=== PATIENT | female | born 1980 | race Caucasian/White ===

== ENCOUNTER 2025-04-16 18:05 | Emergency (ER) | payer BC, SELFPAY ==
--- OUTSIDE RECORDS SUMMARY | 2025-04-16 18:13 | XMS_ITS ---
Care Plan - [facility] Created on: April 16, 2025 JOSSELYN ADRIAN : 1980 Sex: Female Author Organization [facility] Address [address] [place] [address] Phone Care Team Providers Care Mixologist Name Role Phone KALLI ASHTON, ZAIDA Palacios Primary Care Provider [phone] PAYAM ASHTON, ANDREW C Unavailable [phone]
--- OUTSIDE RECORDS SUMMARY | 2025-04-16 18:14 | XMS_ITS | Clinical Summary ---
Author Organization [facility] Address [address] [place] [address] Phone Care Team Providers Care Town Planner Name Role Phone KALLI ASHTON, ZAIDA Palacios Primary Care Provider [phone] ANDREW HARE MD Unavailable [phone] Reason for Visit and Chief Complaint NEW OB EXAM Plan of Treatment No Plan of Treatment Recorded Assessments Includes: Assessments from this encounter No Assessments Recorded Medical Equipment - Implanted Devices Includes: Current Devices No Medical Equipment Recorded Medications Administered Includes: Administered Medications from this encounter No Administered Medications Recorded Results Includes: Results discussed during this encounter No Results Recorded For Specified Dates History of Present Illness Includes: History of Present Illness from this encounter No History of Present Illness Recorded Social History No Social History Recorded - Smoking Status Unknown Medical History Includes: Medical History addressed during this encounter No Medical History Recorded Family History Includes: Family History addressed during this encounter No Family History Recorded Review of Systems Includes: Review of Systems from this encounter No Review of Systems Recorded Mental Status Includes: Mental Status from this encounter No Mental Status Recorded Functional Status Includes: Functional Status from this encounter No Functional Status Recorded Physical Exam Includes: Physical Exam from this encounter No Physical Exam Recorded Insurance Includes: Active Insurance Policies No Insurance Coverage Recorded Guarantor Relationship Effective Dates Guarantor Ph one JOSSELYN ADRIAN Self Clinical Notes Includes: Clinical Notes from this encounter No Clinical Notes Recorded
--- OUTSIDE RECORDS SUMMARY | 2025-04-16 18:14 | XMS_ITS | Clinical Summary ---
Author Organization [facility] Address [address] [place] [address] Care Team Providers Care Coal Trimmer Name Role Phone Natalia Ho Primary Care Provider [phone] Source Comments [facility],non-owned Affiliates and Associated Physician Practices is amultiple site organization consisting of ambulatory clinics and hospital sitesin [place], [place], [place] and [place]. This disclosure is being madepursuant to the Care Everywhere program and may not contain all information available regarding this patient. Last updated 18.[facility] Family History Medical History Relation Name Comments Hypertension Mother Relation Name Status Comments Mother Social History Tobacco Use Types Packs/Day Years Used Date Smoking Tobacco: Never Smokeless Tobacco: Never Tobacco Cessation:Counseling Given: Not Answered Alcohol Use Standard Drinks/Week Comments Not Currently 0 (1 standard drink = 0.6 oz pur e alcohol) Comments Unknown Sex and Gender Information Value Date Recorded Sex Assigned at Not on file Legal Sex Female 9:33 AM CDT Gender Identity Not on file Sexual Orientation Not on file Last Filed Vital Signs Vital Sign Reading Time Taken Comments Blood Pressure 120/83 11/23/2022 2:04 PM CDT Pulse 103 11/23/2022 2:04 PM CDT Temperature - - Respiratory Rate 20 11/23/2022 2:04 PM CDT Oxygen Saturation - - Inhaled Oxygen Concentration - - Weight 59 kg (130 lb) 11/23/2022 2:04 PM CDT Height 157.5 cm (5' 2) 11/23/2022 2:04 PM CDT Body Mass Index 23.78 11/23/2022 2:04 PM CDT Plan of Treatment Health Maintenance Due Date Last Done Comments LIPID TESTING 1980 HIV SCREENING 1997 HEPATITIS C SCREENING 05/22/2000 DTAP/TDAP/TD VACCINES (1 - Tdap) 2001 HEPATITIS B VACCINE (1 of 3 - 19+ 3-dose series) 2001 PAP SMEAR 2003 HPV VACCINE (1 - 3-dose SCDM series) 2009 DEPRESSION SCREENING 04/25/2024 MAMMOGRAM 12/15/2024 12/15/2022, 11/09/2022, 11/09/2022 COVID-19 VACCINE (2 - 2024-2 6 season) 2024 01/28/2021 INFLUENZA VACCINE (#1) 2024 9, 03/18/2018, 01/12/2017 ZOSTER VACCINE (1 of 2) 2032 HIB VACCINE Aged Out No longer eligi ble based on patient's age to complete this topic MENINGOCOCCAL (Group B) VACCINE SHARED DECISION-MAKING Aged Out No longer eligible based on patient's age to complete this topic MENINGOCOCCAL GROUPS A/C/Y/W VACCINE Aged Out No longer eligible b ased on patient's age to complete this topic PNEUMOCOCCAL VACCINE Aged Out No long er eligible based on patient's age to complete this topic Care Teams Coal Trimmer Relationship Specialty Start Date [place] [address] PCP - General 11/23/22
--- OUTSIDE RECORDS SUMMARY | 2025-04-16 18:14 | XMS_ITS | Clinical Summary ---
Author Organization [facility] Address [address] [place] [address] Phone Care Team Providers Care Detective And Intelligence Analyst Name Role Phone KALLI ASHTON, ZAIDA Palacios Primary Care Provider [phone] ANDREW HARE MD Unavailable [phone] Reason for Visit and Chief Complaint MISSED MENSES Plan of Treatment No Plan of Treatment [...]
--- OUTSIDE RECORDS SUMMARY | 2025-04-16 18:14 | XMS_ITS | Data Portability ---
Author Organization DEVON Alma LATHAM Address [address] [place] [address] Care Team Providers Care Assistant Family Teacher Name Role Phone NKECHI FERNANDO Director Of Materials Assessment Encounter Date Assessment Date Assessment LastModified by Organization Details LastModified Time 10/08/2022 10/08/2022 bladder mass seen on US ( had been seen before) will get CT as rerquested by radiology lengthy talk about her 18 week loss today dealt with counselling choices, HROB apt for future if she wants, etc Not available 10/08/2022 15:50:16 11/09/2022 11/09/2022 follow up visit for bladder mass and recent 17 week demise referrals placed, she will keep us posted Not available 11/09/2022 15:15:25 05/17/2023 05/17/2023 tabulating machine mechanic exam benign will watch vaginal bumps and keep us posted if enlarge f/u with urology has been (-) so far for bladder mass seen on OB USs Not available 05/17/2023 16:01:07 09/08/2023 09/08/2023 Discussed risks of subsequent SAB as likely approaching 50%, but the risk of an 18 week loss would be very small Not available 09/08/2023 17:23:31 05/22/2024 05/22/2024 tabulating machine mechanic exam normal discussed irregluar period causes and fixes Not available 05/22/2024 16:01:19 Plan of Treatment Reminders Order Date Submit Date Provider Last Modified By Organization Details Last Modified Time Details Appointments ANNUAL 2025 10:00A M Nkechi Fernando MD Not available Not available Not available Lab cytology report, thin prep, smear or scraping, cervical or vaginal 2024 025 [facility], [address], [address], [place], [address], 05/30/2024 07:32:07 test, urine 2023 024 In-Office Order, Internal Use Only DO Not Attach Compendium DO Not Attach Compendium, Do Not Delete/merge, [id number] 09/08/2023 17:23:33 cytology report, thin prep, smear or scraping, cervical or vaginal 2023 024 [facility], [address], [address], [place], [address], 05/23/2023 16:12:59 Referral None recorded. Procedures None recorded. Surgeries None recorded. Imaging MAMMO, screening , digital, bilateral 2024 025 [facility] (Radiology), [address] [place], [address], 01/22/2025 12:00:32 MAMMO, screening , digital, bilateral 2023 024 [facility] (Radiology), [address] [place], [address], 01/20/2024 12:11:43 Medication Orders None recorded. Patient TargetsNo targets recorded. Patient Instructions Encounter Date Encounter Id Patient Instructions Last Modified By Organization Details Last Modified Time 10/08/2022 [id number] edinburgh depression scale* Not available 10/08/2022 15:36:04 miscarriage: car e instructions Not available 10/08/2022 15:36:04 05/17/2023 [id number] learning about breast cancer screening Not available 05/17/2023 15:50:43 09/08/2023 [id number] miscarriage: car e instructions Not available 09/08/2023 17:23:32 05/22/2024 [id number] learning about breast cancer screening Not available 05/22/2024 15:45:53 Reason for Referral None Reported. Results Created Date Observation Date Name Description Value Unit Range Abnormal Flag Note LastModifiedBy Organization Detail LastModifiedTime 10/09/1910/08/2022 edinb urgh postn atal depre ssion scale * Score 14 Not Available In-Office Order Internal Use Only DO Not Attach Compendium DO Not Attach Compendium, Do Not Delete/merge, [id number] 10/08/2022 15:05:15 05/17/19 24 05/23/2023 IGP, RFX APTIM A HPV ASCU diagnosis: Brinda becker NEGAT FREDI FOR INTRA EPITH ELIAL LESIO N OR KATIE HATCH . REACT FREDI CELLU LAR HERNANDEZ ES AND/O R REPAI R ARE PRESE NT. Not Available [facility] ([facility]) [address], [place], [address], 05/23/2023 16:12:59 05/17/19 24 05/23/2023 IGP, RFX APTIM A HPV ASCU specimen adequacy: Brinda becker Satis facto ry for evalu ation . Endoc ervic al and/o r squam ous metap lasti c cells (endo cervi jalyn compo nent) are prese nt. Not Available [facility] ([facility]) [address], [place], [address], 05/23/2023 16:12:59 05/17/19 24 05/23/2023 IGP, RFX APTIM A HPV ASCU clinician provided ICD10: Brinda becker Z01.4 19 Not Available [facility] ([facility]) [address], [place], [address], 05/23/2023 16:12:59 05/17/19 24 05/23/2023 IGP, RFX APTIM A HPV ASCU performed by: Brinda Penn ws, Cytot echno logis t (ASCP ) Not Available [facility] ([facility]) [address] [place], [address], 05/23/2023 16:12:59 05/17/19 24 05/23/2023 IGP, RFX APTIM A HPV ASCU electronical ly signed by: Brinda salvador MD, Patho logis t Not Available [facility] ([facility]) [address] [place], [address], 05/23/2023 16:12:59 05/17/19 24 05/23/2023 IGP, RFX APTIM A HPV ASCU . . Not Available [facility] ([facility]) [address], [place], [address], 05/23/2023 16:12:59 05/17/19 24 05/23/2023 IGP, RFX APTIM A HPV ASCU note: Brinda t The Pap smear is a scree violetta test desig alexandr to aid in the detec tion of justa ligna nt and malig nant condi tions of the uteri ne cervi x. It is not a diagn ostic proce dure and shoul d not be used as the sole means of detec ting cervi jalyn cance r. Both false -posi tive and false -nega tive repor ts do occur . Not Available [facility] ([facility]) [address], [place], [address], 05/23/2023 16:12:59 05/17/19 24 05/23/2023 IGP, RFX APTIM A HPV ASCU test methodology: Brinda becker This liqui d based ThinP rep(R ) pap test was scree alexandr with the use of an image guide girma whiteside. Not Available [facility] ([facility]) [address] [place], [address], 05/23/2023 16:12:59 05/17/19 24 05/23/2023 IGP, RFX APTIM A HPV ASCU . Commen t The HPV DNA refle x crite zulma were not met with this speci men resul t there fore, no HPV testi ng was perfo rmed. Not Available [facility] ([facility]) [address], [place], [address], 05/23/2023 16:12:59 09/02/19 24 09/03/2023 HCG,B ETA SUBUN IT, QNT HCG,beta subunit,qnt, serum 3 mIU/m L Femal e (Non- pregn ant) 0 - 5 (Post menop ausal ) 0 - 8 Femal e (Preg nant) Weeks of Gesta tion 3 6 - 71 4 10 - 750 5 097 - 1738 6 158 - 24784 7 0038 -9395 63 8 16617 -5868 71 9 39281 -4913 10 10 05809 -4212 77 12 13522 -4105 12 14 00302 - 05501 15 58014 - 88038 16 1034 - 60323 17 1458 - 78472 18 7873 - 69639 Sheri ECLIA metho dolog y Not Available [facility] ([facility]) [address] [facility], [place], [address], 09/03/2023 11:11:59 09/08/19 24 09/08/2023 pregn giulia test, urine HCG negati ve Not Available In-Office Order Internal Use Only DO Not Attach Compendium DO Not Attach Compendium, Do Not Delete/merge, [id number] 09/08/2023 16:55:30 05/22/1905/28/2024 IGP, RFX APTIM A HPV ASCU diagnosis: COMMEN T abnormal EPITH ELIAL CELL ABNOR MALIT Y. ATYPI JALYN SQUAM OUS CELLS OF UNDET ERMIN ED SIGNI FICAN CE (ASC- US). Not Available [facility] ([facility]) [address] [facility], [place], [address], 05/30/2024 07:32:07 05/22/19 25 05/28/2024 IGP, RFX APTIM A HPV ASCU recommendati on: BRINDA Becker abnormal Sugge st follo w up as clini jaret appro priat e. Not Available [facility] ([facility]) [address] [place], [address], 05/30/2024 07:32:07 05/22/19 25 05/28/2024 IGP, RFX APTIM A HPV ASCU specimen adequacy: BRINDA Becker Satis facto ry for evalu ation . Endoc ervic al and/o r squam ous metap lasti c cells (endo cervi jalyn compo nent) are prese nt. Not Available [facility] ([facility]) [address] [place], [address], 05/30/2024 07:32:07 05/22/19 25 05/28/2024 IGP, RFX APTIM A HPV ASCU clinician provided ICD10: BRINDA Becker Z01.4 19 Not Available [facility] ([facility]) [address] [place], [address], 05/30/2024 07:32:07 05/22/19 25 05/28/2024 IGP, RFX APTIM A HPV ASCU performed by: BRINDA Padgett er, Cytot echno logis t (ASCP ) Not Available [facility] ([facility]) [address] [place], [address], 05/30/2024 07:32:07 05/22/19 25 05/28/2024 IGP, RFX APTIM A HPV ASCU electronical ly signed by: BRINDA salvador MD, Patho logis t Not Available [facility] ([facility]) [address] [place], [address], 05/30/2024 07:32:07 05/22/19 25 05/28/2024 IGP, RFX APTIM A HPV ASCU . . Not Available [facility] ([facility]) [address] [place], [address], 05/30/2024 07:32:07 05/22/19 25 05/28/2024 IGP, RFX APTIM A HPV ASCU pathologist provided ICD10: BRINDA Becker R87.6 10 Not Available [facility] ([facility]) [address] [facility], [place], [address], 05/30/2024 07:32:07 05/22/19 25 05/28/2024 IGP, RFX APTIM A HPV ASCU note: COMMEN T The Pap smear is a scree violetta test desig alexandr to aid in the detec tion of justa ligna nt and malig nant condi tions of the uteri ne cervi x. It is not a diagn ostic proce dure and shoul d not be used as the sole means of detec ting cervi jalyn cance r. Both false -posi tive and false -nega tive repor ts do occur . Not Available [facility] ([facility]) [address] [facility] [address], [place], [address], 05/30/2024 07:32:07 05/22/19 25 05/28/2024 IGP, RFX APTIM A HPV ASCU test methodology: BRINDA T This liqui d based ThinP rep(R ) pap test was scree alexandr with the use of an image guide girma systvioletta m. Not Available [facility] ([facility]) [address] [place], [address], 05/30/2024 07:32:07 05/22/19 25 05/28/2024 IGP, RFX APTIM A HPV ASCU . COMMEN T See below for HPV testi ng resul ts. Not Available [facility] ([facility]) [address] [place], [address], 05/30/2024 07:32:07 05/22/19 25 05/29/2024 HPV APTIM A HPV aptima Negati ve negati ve This nucle ic acid ampli ficat ion test detec ts fourt een high- risk HPV types (16,1 8,31, 33,35 ,39,4 5,51, 52,56 ,58,5 9,66, 68) witho ut diffe renti ation . Not Available [facility] ([facility]) [address], [place], [address], 05/30/2024 07:32:08 09/14/19 23 09/13/2022 US, obste tric, mater nal evalu ation + anato my No observ ation record ed. [email or web address] (Radiology) [address] [place] [address] [place], [address], 09/14/2022 10:16:16 09/15/19 23 09/13/2022 US, obste tric, mater nal evalu ation + anato my No observ ation record ed. [email or web address] [place] [facility] (Radiology) [address] [place] [address] [place], [address], 09/15/2022 11:52:27 11/03/19 23 11/01/2022 CT, abdom en + pelvi s, w/ contr ast No observ ation record ed. [address] [place], [address], 11/03/2022 12:22:05 11/10/19 23 11/09/2022 MAMMO , scree violetta, digit al, bilat eral No observ ation record ed. [facility] [address] [place] [address] [place], [address], 11/10/2022 10:20:09 12/16/19 23 12/15/2022 MAMMO , diagn ostic , digit al, bilat eral No observ ation record ed. [email or web address] [place], [address], 12/15/2022 11:42:25 01/20/20 24 01/19/2024 MAMMO , scree violetta, digit al, bilat eral No observ ation record ed. [facility] (Radiology) [address] [place] [address] [place], [address], 01/20/2024 12:12:46 01/20/20 24 01/19/2024 MAMMO , scree violetta, digit al, bilat eral No observ ation record ed. [facility] (Radiology) [address] [place] [address] [place], [address], 01/23/2024 09:14:15 01/22/2001/21/2025 MAMMO , scree violetta, digit al, bilat eral No observ ation record ed. [address] [place], [address], 01/22/2025 12:03:44 Result Notes None recorded. Problems Name Problem SNOMED Code Status Onset Date Resolution Date Notes Provider Name and Address Organization Details Recorded Time Gestation period, 40 weeks 17979027 Active Thelma Ennis RMA [place], [place] [facility] 3 13:44:46 Vaginal delivery 826125476 Active Thelma En[place] [facility] 3 13:44:46 Abnormal cervical Papanicola ou smear 016870731 Active Yen Soriano [place] [facility] 6 10:36:21 Dysplasia of cervix 85240352 Active Thelma Ennis R[place] [facility] 3 13:44:46 Cervical intraepith elial neoplasia grade 2 004527929 Active Thelma En[place] R[place] [facility] 3 13:44:46 Cervical intraepith elial neoplasia grade 1 000923689 Active Thelma En[place] R[place] [facility] 3 13:44:46 95989254 Completed 201603/08/2017 Regina Henriquez RN [place] [facility] 3 17:55:38 63791145 Completed 201709/06/2018 Regina Henri[place] [facility] 3 17:55:38 Abnormal vaginal Papanicola ou smear 045765864 Active 2017 CAILIN Lyon [place] [facility] 1 11:01:02 ultrasound scan abnormal 809464089 Active 2017 CAILIN [place] [facility] 1 11:01:02 High risk 03527939 Active 2017 CAILIN [place] [facility] 1 11:01:02 13568094 Completed 202004/20/2021 Regina Henri[place] [facility] 3 17:55:38 [id number] Completed 202209/13/2022 Regina Henri[place] [facility] 3 17:55:38 Problem Notes None recorded. Procedures Surgical History Date Name Laterality Status Provider Name and Address Organization Details Recorded Time 01/22/20 25 Most Recent Mammogram completed Regina Henriquez RN [place] - [facility] 01/22/2025 12:03:53 05/22/19 25 Date of Last Pap Smear completed CAILIN Lyon [place] - [facility] 05/30/2024 09:00:11 08/19/19 16 Colposcopy completed Kathy Herndon ID - [facility] 08/19/2015 17:08:49 01/09/20 15 Colposcopy completed Kathy Herndon ID - [facility] 01/08/2015 17:32:15 Appendectomy completed Arleth Salas [place] - [facility] 19:54:20 Tonsillectomy completed Yen Soriano MA ID - [facility] 09/15/2015 10:42:33 LEEP completed Kaylin Stokes [place] - [facility] 05/19/2016 15:11:46 Imaging Results None recorded. Procedure Notes None recorded. Medical Equipment None Reported. Allergies Allergen ID Allergen Name Allergen Category Reaction Reaction Severity Criticality Documentation Date Start Date Code Code System Note Provider Name and Address Organization Details Recorded Time 632604 No known allergy (situatio n) Not available Not available Not available Not available 04/27/2022 44731 [id number] SNOMED Thelma Ennis, RMA [place], [place] - [facility] 3 13:44:46 No known drug allergies Medications Name Sig Start Date Stop Date Status Note LastModified by Organization Details LastModified Time Prescript ion - New 08/20 completed Aeroflow breast pump order Not Available Not Available Not Available Prescript ion - Prior Authoriza tion Request TAKE 1 TABLET BY MOUTH EVERY DAY 08/20 completed Not Available Not Available Not Available amoxicill in 500 mg capsule TAKE ONE CAPSULE BY MOUTH THREE TIMES DAILY FOR 7 DAYS 09/07 completed Not Available Not Available Not Available ibuprofen 800 mg tablet 05/19 completed Not Available Not Available Not Available hydrocodo ne 5 mg-acetam inophen 325 mg tablet 03/08 completed Not Available Not Available Not Available Vitamin tablet Take 1 tablet every day by oral route. 08/20 completed Not Available Not Available Not Available oxycodone -acetamin ophen 5 mg-325 mg tablet 05/19 completed Not Available Not Available Not Available amoxicill in 875 mg tablet 05/19 completed Not Available Not Available Not Available ibuprofen 600 mg tablet 08/20 completed Not Available Not Available Not Available Ortho Micronor 0.35 mg tablet Take 1 tablet every day by oral route. 08/20 completed Not Available Not Available Not Available Prenatabs FA 29 mg-1 mg tablet 08/20 completed Not Available Not Available Not Available nitrofura ntoin monohydra te/macroc rystals 100 mg capsule TAKE 1 CAPSULE BY MOUTH EVERY 12 HOURS FOR 7 DAYS 11/09 completed Not Available Not Available Not Available Vitamins with Minerals 28 mg iron-800 mcg tablet Take 1 tablet every day by oral route. 05/19 completed Not Available Not Available Not Available active Not Available Not Avai lable Not Available PreviDent 5000 Sensitive 1.1 %-5 % dental paste active Not Available Not Available Not Available Plus (calcium carbonate ) 27 mg iron-1 mg tablet 05/19 completed Not Available Not Available Not Available 28 mg iron-800 mcg tablet TAKE 1 TABLET BY MOUTH EVERY DAY 08/20 completed Not Available Not Available Not Available Plus 29 mg iron-1 mg tablet TAKE 1 TABLET BY MOUTH EVERY DAY 05/19 completed Not Available Not Available Not Available Xulane 150 mcg-35 mcg/24 hr transderm al patch Apply 1 patch every week by transder mal route. 05/19 completed Not Available Not Available Not Available Aurovela 24 Fe 1 mg-20 mcg (24)/75 mg (4) tablet TAKE 1 TABLET BY MOUTH EVERY DAY active Not Available Not Available No t Available Vitals Date Recorded Body height Body mass index (BMI) Body weight Systolic And Diastolic Provider Name and Address Organization Details Last Updated DateTime 05/17/2023 160.02 cm 23.9 kg/m2 18786.26 g 124/78 mm[Hg] Thelma Ennis [facility] 05/17/2023 15:45:32 Date Recorded Body height Body mass index (BMI) Body weight Systolic And Diastolic Provider Name and Address Organization Details Last Updated DateTime 05/22/2024 160.02 cm 23.9 kg/m2 85275.97 g 129/83 mm[Hg] Thelma Ennis [facility] 05/22/2024 15:43:48 Date Recorded Body height Body mass index (BMI) Body weight Systolic And Diastolic Provider Name and Address Organization Details Last Updated DateTime 09/08/2023 160.02 cm 22.9 kg/m2 37548.42 g 107/69 mm[Hg] Thelma Ennis [facility] 09/08/2023 16:53:41 Date Recorded Body height Body mass index (BMI) Body weight Systolic And Diastolic Provider Name and Address Organization Details Last Updated DateTime 10/08/2022 160.02 cm 23.2 kg/m2 71628.74 g 132/83 mm[Hg] Thelma Ennis [facility] 10/08/2022 15:01:30 Date Recorded Body height Body mass index (BMI) Body weight Systolic And Diastolic Provider Name and Address Organization Details Last Updated DateTime 11/09/2022 160.02 cm 22.9 kg/m2 92614.42 g 119/79 mm[Hg] Thelma Ennis [facility] 11/09/2022 14:46:08 Social History Question Answer Notes LastModified by Organizat ion Details LastModified Time Tobacco Smoking Status Never Smoker Alma Allan MA [facility], [place] - [facility] 12/11/2014 16:18:06 Do You Have An Advance Directive? No Information not available 12/04/2021 Is Blood Transfusion Acceptable In An Emergency? No Information not available 05/19/2016 What Is Your Level Of Caffeine Consumption? Occasional Information not available 01/08/2015 How Much Tobacco Do You Chew? None Information not available 05/19/2016 In The 14 Days Before Symptom Onset, Have You Had Close Contact With A Laboratory-confir med COVID-19 While That Case Was Ill? No Information not available 12/04/2021 In The 14 Days Before Symptom Onset, Have You Had Close Contact With A Person Who Is Under Investigation For COVID-19 While That Person Was Ill? No Information not available 12/04/2021 Have You Been To An Area Known To Be High Risk For COVID-19? No Information not available 12/04/2021 What Type Of Diet Are You Following? REGULAR [email or web address] Information not available 09/15/2015 Which Illicit Or Recreational Drugs Have You Used? Denies Information not available 05/19/2016 Education 2 Year College Informatio n not available 05/19/2016 Have There Been Any Changes To Your Family Or Social Situation? No Information no t available 12/04/2021 Are There Any Guns Present In Your Home? No [email or web address] Information not available 09/15/2015 Live Alone Or With Others? With Others Lives With Fianc And 3 Yo Son Information not available 09/15/2015 What Was The Date Of Your Most Recent Tobacco Screening? 09/08/2023 Information not available 09/08/2023 How Many Children Do You Have? 2 Information not available 03/08/2017 Performs Monthly Self-breast Exam? No Information no t available 05/19/2016 Do You Use Protection During Sex? No Information not available 05/19/2016 What Is Your Relationship Status? Single Information not available 05/19/2016 Do You Use Your Seat Belt Or Car Seat Routinely? Yes Information not available 12/04/2021 Seat Belts Used Routinely Yes [email or web address] Information not available 09/15/2015 Are You Sexually Active? Yes Information not available 05/19/2016 Do You Have Smoke And Carbon Monoxide Detectors In Your Home? Yes Information not available 12/04/2021 Are You Passively Exposed To Smoke? No [email or web address] Information no t available 09/15/2015 General Stress Level Low Information not available 05/19/2016 Do You Use Sunscreen Routinely? Yes [email or web address] Information not available 09/15/2015 Has Tobacco Cessation Counseling Been Provided? No Information not available 08/20/2020 Sex: Female Functional Status Question Answer Note LastModified by Organization D etails LastModified Time Do you or have you ever used any other forms of tobacco or nicotine? No Information not available 08/20/2020 What is your level of alcohol consumption? None Information not available 01/08/2015 Are you currently employed? No Information not available 05/19/2016 What is your exercise level? Moderate Information not available 05/19/2016 Mental Status None recorded. Family History Relationship Description Onset Age of this Age Resolved Age Notes LastModified by Organization Details LastModified Time Mother Hypertensive disorder [email or web address] Not available 2015 10:36:21 Father Malignant neoplasm of colon 71 [email or web address] Not available 2015 10:36:21 Medical History Condition Response Coronary Artery Disease N Other N Atrial Fibrillation N High Blood Pressure N Breast Cancer N Lung Disease N Depression N COPD N Blood Clots N Breast Problem N Anesthesia Complications N Headaches/Migraines N Anxiety Disorder N Muscle, Joint, or Bone Problems N Arthritis N Infertility N Polyps N Acid Reflux (GERD) N Cancer N Stroke N Endometriosis N High Cholesterol N Liver Disease N Fibromyalgia N Headaches N Kidney Disease N Heart Problems N Thyroid Problems N Kidney or Bladder Problems N GI Problems N Acne N Eating Disorder N Skin Problems N Anemia N Heart Attack ([place]) N Diabetes N Ovarian Cancer N Blood Transfusions N Seizures/Epilepsy N Abuse/Domestic Violence N Asthma N Allergies N Hepatitis N Heart Disease N Pre-Eclampsia N Hypertension N Heart Failure N Osteoporosis N Gynecological History Statement/Question Response Abnormal Pap Yes On BCP's at Conception? N STIs/STDs No HPV Vaccine N Duration of Flow (days) 7 Most Recent Mammogram 01/21/2025 Age at Menarche 16 Current Control Method None Age at First Child 32 Sexually Active? Y Menses Monthly N Date of Last Pap Smear 05/22/2024 Sexual Problems? N LMP Definite Obstetrics History GPAL:G 5 P 4 0 1 4 Type Value Multiple Births 0 Full Term 4 Induced 0 Spontaneous 1 Premature 0 Living 4 Ectopics 0 Total 5 Immunizations Vaccine Type Date Status Note Provider Nam e and Address Organization Details Recorded Time MMR 7 completed Thelma Ennis[place] [facility] 01/19/2024 15:32:19 COVID-19, mRNA, LNP-S, PF, 30 mcg/0.3 mL dose 1 completed Thelma Ennis, [place] [facility] 05/13/2022 15:53:58 Influenza, MDCK, quadrivalent, PF 9 completed Thelma Ennsi, [place] [facility] 05/13/2022 15:53:58 Influenza, split virus, quadrivalent, PF 8 completed Thelma Ennis[place] [facility] 05/13/2022 15:53:58 Tdap 9 completed Thelma Ennis, [place] [facility] 05/13/2022 15:53:58 Tdap 7 completed Not Available [facility] 05/12/2019 02:51:00 Influenza, split virus, quadrivalent, preservative 7 completed Not Available [facility] 05/12/2019 02:46:40 Tdap 1 completed Thelma Ennis, [place] [facility] 02/10/2021 16:10:10 Past Encounters Encounter ID Performer Location Encounter Start Date Encounter Closed Date Diagnosis/Indication Diagnosis SNOMED-CT Code Diagnosis ICD10 Code Diagnosis IMO Codes Diagnosis Note [id number] MD [facility] ([place] [address]) [address] [place] [id number] 12/11/2014 16:03:42 12/11/2014 17:27:26 Gynecologic examination [id number] Reproducti ve care management [id number] MD Pat Carlin ([place] [address]) [address] [facility] [place] [address] 01/08/2015 16:06:08 01/09/2015 09:40:05 Abnormal cervical Papanicolaou smear [id number] MD Pat Carlin ([place] [address]) [address] [place] [address] 01/15/2015 10:16:36 01/15/2015 12:22:39 Dysplasia of cervix [id number] Patient needing excision procedure with LEEP. However she will need to obtain insurance coverage prior to scheduling . [id number] MD Pat Carlin ([place] [address]) [address] [place] [place] [address] 03/10/2015 10:12:49 03/10/2015 12:58:49 Pre-surgery evaluation [id number] Z01.818 Counseled about risks specific to Loop electrosur gical excision procedure as well as reasons for the procedure. R/B/I/A discussed and questions answered. [id number] MD Pat Carlin ([place] [address]) [address] [place] [place] [address] 04/08/2015 16:43:01 04/08/2015 17:58:34 Postoperative visit [id number] Z09 findings of cin2 at the LEEP margins, repeat pap, HPV and ECC in 4 months. Contraception care 21821 5005 Z30.40 Reproducti ve care management 461345557 Z31.9 [id number] MD Pat Carlin ([place] [address]) [address] [place] [place] [address] 08/19/2015 14:24:18 08/20/2015 10:46:15 Cervical intraepithelial neoplasia grade 2 690132409 N87.1 return in 1 week for followup. [id number] MD Pat Carlin ([place] [address]) [address] [place] [place] [address] 08/27/2015 11:20:09 08/27/2015 17:28:12 Cervical intraepithelial neoplasia grade 1 676155127 N87.0 [id number] Breanna Nathan MD [facility] [address] [place] [address] 09/15/2015 10:21:45 09/15/2015 15:17:07 Adult health examination 945030546 Z00.00 [id number] MD Sung Newberry (CABLE INSTALLATION TECHNICIAN) [address] [place] [address] 05/19/2016 14:35:49 05/19/2016 16:53:16 Routine care 040370820 Z34.81 folder given. labs plus toxo titers ordered. Rx PNVs sent to pharmacy. RTO 2 weeks for results and dating US order. [id number] MD Sung Newberry (CABLE INSTALLATION TECHNICIAN) [address] [place] [address] 06/03/2016 09:34:41 06/22/2016 17:11:25 Routine care 073341628 Z34.81 See ACOG form [id number] MD Sung Newberry (CABLE INSTALLATION TECHNICIAN) [address] [place] [address] 06/30/2016 10:16:34 07/01/2016 12:02:37 Routine care 019177614 Z34.81 See ACOG form [id number] MD Sung Newberry (CABLE INSTALLATION TECHNICIAN) [address] [facility] [place] [address] 08/04/2016 10:15:51 08/05/2016 12:25:42 Routine care 772386149 Z34.82 See ACOG form [id number] MD Sung Newberry (CABLE INSTALLATION TECHNICIAN) [address] [facility] [place] [address] 09/01/2016 09:53:24 09/01/2016 12:13:07 Routine care [id number] Z34.82 See ACOG form [id number] MD Sung Newberry (CABLE INSTALLATION TECHNICIAN) [address] [facility] [place] [address] 09/29/2016 16:19:04 10/01/2016 12:18:00 Routine care [id number] Z34.82 See ACOG form [id number] MD Sung Newberry (CABLE INSTALLATION TECHNICIAN) [address] [place] [address] 11/01/2016 10:55:18 11/04/2016 14:31:47 Routine care 390523173 Z34.82 See ACOG form [id number] Holli Marley MD [place] (CABLE INSTALLATION TECHNICIAN) [address] [place] [address] 11/15/2016 11:21:27 11/18/2016 11:38:30 Routine care [id number] Z34.83 See ACOG form [id number] Holli Marley MD [place] (CABLE INSTALLATION TECHNICIAN) [address] [facility] [place] [address] 11/30/2016 14:28:14 12/02/2016 10:15:41 Routine care [id number] Z34.83 See ACOG form [id number] Holli Marley MD [place] (CABLE INSTALLATION TECHNICIAN) [address] [place] [address] 12/14/2016 10:59:24 12/16/2016 11:09:22 Routine care [id number] Z34.83 See ACOG form [id number] Holli Marley MD [place] (CABLE INSTALLATION TECHNICIAN) [address] [place] [address] 12/28/2016 10:53:19 12/29/2016 09:11:02 Routine care [id number] Z34.83 See ACOG form [id number] Holli Marley MD [place] (CABLE INSTALLATION TECHNICIAN) [address] [place] [address] 01/05/2017 14:19:30 01/10/2017 15:23:01 Routine care [id number] Z34.83 See ACOG form [id number] Holli Marley MD [place] (CABLE INSTALLATION TECHNICIAN) [address] [place] [address] 01/12/2017 10:05:41 01/14/2017 14:02:53 Routine care [id number] Z34.83 See ACOG form [id number] Holli Marley MD [place] (CABLE INSTALLATION TECHNICIAN) [address] [place] [address] 01/20/2017 10:00:29 01/21/2017 17:01:13 Routine care [id number] Z34.83 See ACOG form [id number] Holli Marley MD [facility] (CABLE INSTALLATION TECHNICIAN) [address] [place] [address] 03/08/2017 14:18:47 03/11/2017 16:26:32 care 090303409 Z39.2 Episiotomy well-heale d. Anal sphincter intact. Pt. reassured. Continue Kegel exercises. Family george nning surveillance [id number] Z30.09 control options discussed. Pt. does not want any hormones. Benefits, risks, and alternativ es to Paragard IUD insertion d/w pt. Pt. expressed understand ing. All pt. questions answered. Handout given. UPT was negative today. RTO 2 weeks for repeat UPT and Paragard IUD insertion. [id number] MD Pat Vizcarra [address] [place] [place] [address] 02/15/2018 10:35:48 02/16/2018 11:25:07 Normal [id number] Z34.81 [id number] MD Pat Vizcarra 14 OB [address] [place] [address] 03/14/2018 16:51:18 03/15/2018 14:01:14 Normal [id number] Z34.81 [id number] MD Pat Vizcarra 14 OB [address] [place] [address] 04/03/2018 13:47:27 04/03/2018 15:13:47 Normal [id number] Z34.81 [id number] MD Pat Vizcarra 14 OB [address] [place] [address] 05/01/2018 13:44:37 05/01/2018 16:18:05 Normal [id number] Z34.81 [id number] MD Pat Vizcarra 14 OB [address] [place] [address] 05/29/2018 10:55:26 05/29/2018 12:42:10 Normal [id number] Z34.81 [id number] MD Pat Vizcarra [address] [place] [place] [address] 06/22/2018 11:14:58 06/22/2018 15:24:14 Normal [id number] Z34.81 [id number] MD Pat Vizcarra [address] [place] [place] [address] 07/13/2018 16:29:11 07/14/2018 09:09:48 Normal [id number] Z34.81 [id number] MD Pat Vizcarra [address] [place] [place] [address] 07/27/2018 16:27:41 07/28/2018 08:48:58 Normal [id number] Z34.81 Administra tion of diphtheria, pertussis, and tetanus vaccine 151160040 Z23 [id number] MD Pat Vizcarra [address] [place] [place] [address] 08/10/2018 16:23:13 08/11/2018 09:54:26 Normal [id number] Z34.81 [id number] MD Pat Vizcarra [address] [place] [place] [address] 1 08/17/2018 10:41:15 08/18/2018 10:10:44 Normal [id number] Z34.81 [id number] MD Pat Vizcarra [address] [place] [place] [address] 08/24/2018 16:13:09 08/25/2018 08:36:25 Normal [id number] Z34.81 [id number] MD Pat Vizcarra [address] [place] [place] [address] 1 08/29/2018 16:11:13 08/30/2018 08:13:32 Normal [id number] Z34.81 Post-term 9096 8009 O48.0 [id number] MD Pat Vizcarra [address] [place] [place] [address] 09/25/2018 15:04:08 09/26/2018 08:24:40 depression [id number] F53.0 [id number] MD Pat Vizcarra [address] [place] [address] 10/17/2018 15:47:57 10/18/2018 09:53:38 care 790798174 Z39.2 Contracept ion care management 335412598 Z30.9 [id number] MD Pat Vizcarra [address] [place] [address] 08/20/2020 10:50:18 08/21/2020 12:46:44 Normal [id number] Z34.81 [id number] MD Pat Vizcarra [address] [place] [address] 10/02/2020 11:23:55 10/03/2020 14:34:35 Normal [id number] Z34.81 Multigravi da of advanced maternal age 235285947 O09.542 [id number] MD Pat Vizcarra 14 OB [address] [place] [place] [address] 10/23/2020 11:16:04 10/24/2020 19:03:45 Normal [id number] Z34.82 Advanced m aternal age 656906155 O09.060 [id number] MD Pat Vizcarra 14 OB [address] [place] [address] 11/20/2020 10:19:44 11/21/2020 08:14:53 Normal [id number] Z34.82 [id number] MD Pat Vizcarra [address] [place] [address] 12/12/2020 10:11:39 12/15/2020 05:52:20 Normal [id number] Z34.82 [id number] MD Pat Vizcarra [address] [place] [address] 01/02/2021 10:54:49 01/05/2021 06:41:24 Normal [id number] Z34.82 Advanced m aternal age [id number] O09.399 [id number] MD Pat Vizcarra [address] [place] [address] 01/23/2021 14:51:30 01/26/2021 14:30:46 Normal [id number] Z34.82 [id number] MD Pat Vizcarra 14 OB [address] [place] [place] [address] 02/10/2021 15:57:27 02/11/2021 09:26:24 Normal [id number] Z34.82 Administra tion of diphtheria, pertussis, and tetanus vaccine 039294956 Z23 [id number] MD Pat Vizcarra 14 OB [address] [place] [address] 02/18/2021 10:19:53 02/19/2021 07:47:33 Normal [id number] Z34.82 Advanced m aternal age 796956273 O09.275 [id number] MD Pat Vizcarra 14 OB [address] [place] [place] [address] 02/24/2021 15:45:06 02/25/2021 06:54:20 Normal [id number] Z34.82 [id number] MD Pat Vizcarra 14 OB [address] [place] [address] 04/20/2021 16:32:51 04/21/2021 05:28:04 care [id number] Z39.2 [id number] MD Pat Vizcarra 14 OB [address] [place] [place] [address] 1 12/04/2021 13:52:24 12/07/2021 09:54:54 Mass of vulva 966542092 N90.89 [id number] MD Pat Vizcarra 14 OB [address] [place] [place] [address] 05/13/2022 15:28:03 05/14/2022 08:49:02 Gynecologic examination 61207855 Z01.419 Screening for malignant neoplasm of breast 511682578 Z12.39 [id number] MD Pat Vizcarra 14 OB [address] [place] [place] [address] 07/21/2022 09:57:36 07/22/2022 09:27:10 Normal [id number] Z34.90 Advanced m aternal age 768912590 O09.688 [id number] MD Pat Vizcarra 14 OB [address] [place] [address] 08/23/2022 15:14:20 08/26/2022 14:17:19 Normal [id number] Z34.90 Multigravi da of advanced maternal age 534337237 O09.027 [id number] MD Pat Vizcarra 14 OB [address] [place] [address] 09/13/2022 15:51:27 09/14/2022 14:24:49 demise from miscarriage [id number] O03.9 [id number] MD Pat Vizcarra 14 OB [address] [place] [address] 10/08/2022 14:29:41 10/22/2022 13:47:34 Miscarriage 61420637 O03.9 Mass of ur inary bladder 711465041 N32.89 [id number] MD Pat Vizcarra 14 OB [address] [place] [address] 11/09/2022 14:38:11 11/11/2022 10:30:42 Positive screening for depression on PHQ-9 (Patient Health Questionnaire 9) 1366134541 27898 Z13.31 Mass of ur inary bladder 417548450 N32.89 [id number] MD Pat Vizcarra 14 OB [address] [place] [place] [address] 05/17/2023 15:33:07 05/23/2023 13:57:42 Gynecologic examination 52178120 Z01.419 Screening for malignant neoplasm of breast 261706706 Z12.39 [id number] MD Pat Vizcarra 14 OB [address] [place] [address] 09/08/2023 16:35:12 09/09/2023 13:47:10 Miscarriage 51110231 O03.9 [id number] MD Pat Vizcarra 14 OB [address] [place] [place] [address] 05/22/2024 15:30:53 05/25/2024 10:15:05 Gynecologic examination 77013211 Z01.419 Screening for malignant neoplasm of breast 777394216 Z12.39 Health Concerns Section Related Observation LastModified by Organization Detai ls LastModified Time None Recorded Concern Status LastModified by Organization Details LastModified Time None Recorded Advance Directives Directive N: Payers Insurance Date Sequence Insurance Name Policy Number Policy Landin Covered Member ID Landin Member ID Guarantor Name 04/20/2021 SLIDING FEE SCHEDULE - DISCOUNT Terra Feezel 02/18/2021 SLIDING FEE SCHEDULE - DISCOUNT Terra Feezel 11/11/2020 SLIDING FEE SCHEDULE - DISCOUNT Terra Feezel 11/11/2020 2 *SELF PAY* Te rra Feezel 11/11/2020 SLIDING FEE SCHEDULE - DISCOUNT Terra Feezel 12/31/2020 SLIDING FEE SCHEDULE - DISCOUNT Terra Feezel 10/23/2020 1 *SELF PAY* Te rra Feezel 10/03/2020 SLIDING FEE SCHEDULE - DISCOUNT Terra Feezel 10/21/2020 2 [facility] (MEDICAID HMO) [id number] 0003 Terra Feezel [id number] Terra Feezel 08/21/2020 SLIDING FEE SCHEDULE - DISCOUNT Terra Feezel 05/06/2023 1 *SELF PAY* Te rra Feezel 02/21/2018 1 MEDICAID - [id number] - PENDING [id number] Terra Feezel 04/03/2018 1 *SELF PAY* Te rra Feezel 06/05/2020 SLIDING FEE SCHEDULE - DISCOUNT Terra Feezel 03/19/2024 1 MEDICAID-ID: [facility] [place] [facility] Terra Feezel [id number] Terra Feezel 01/25/2023 1 [facility] (MEDICAID HMO) [id number] 0003 Terra Feezel [id number] Terra Feezel 07/20/2022 SLIDING FEE SCHEDULE - DISCOUNT Terra Feezel 12/04/2021 SLIDING FEE SCHEDULE - DISCOUNT Terra Feezel 04/20/2021 SLIDING FEE SCHEDULE - DISCOUNT Terra Feezel 12/11/2014 1 [facility] (MEDICAID HMO) [id number] 0003 Terra Feezel [id number] Terra Feezel 05/17/2016 SLIDING FEE SCHEDULE - DISCOUNT Terra Feezel 03/19/2024 1 MEDICAID-ID: [facility] [place] OF PUBLIC AID Terra Feezel [id number] Patricia Feelillian 12/01/2020 1 MEDICAID-ID: [facility] [place] [facility] Patricia sDouza [id number] Patricia Feelillian 05/18/2021 SLIDING FEE SCHEDULE - DISCOUNT Cubaa Feezel 07/03/2024 1 BCBS-ID (PPO) [id number] Viral Bazzi [id number] Patricia Dsouza 02/13/2018 1 [facility] (MEDICAID HMO) [id number] 0003 Patricia Feelillian [id number] Patricia Feezel 05/06/2023 SLIDING FEE SCHEDULE - DISCOUNT Cubaa Feezel Notes Date Note Type Note Provider Name and Address Organization Details Recorded Time 3 text/html discussed referral to urology for bladder mass seen on both US and CT( info faxxed on 11/03 , gave her urology phone # to call and check on apt. status) She would also be interested in a HROB apt. to discuss her recent 17 week loss and the chances of recurrence Nkechi Fernando MD Attn: Accounting[address] [place], [address], [facility] 11/09/2022 15:15:41 4 text/html Annual GYNReported by PatientGenitourinary symptomsFor menstrual cycle, patient reportsnormal menses. For urinary symptoms, patient reportsno hematuriaandno incontinence. For vulva, patient reportsno genital lesion. For vagina, patient reportsnormal vaginal discharge.Breast symptomsFor breast, patient reportsno breast pain,no breast lump, andno nipple discharge.Endocrine symptomsFor sexual complaints, patient reportsno sexual complaints,no pain during intercourse, andnormal libido. For menopausal symptoms, patient reportsno menopausal symptomsandnormal vaginal lubrication.Psychological symptomsFor psychological symptoms, patient reportsno depression,no anxiety, andno pmdd.ROS as noted in the HPI had 18 week loss 3periods regular Nkechi Fernando MD Attn: Accounting[address] [place], [address], [facility] 05/17/2023 16:01:26 4 text/html Had a + home preg test, then started bleeding all our lab testing has been negative. Assuming was a SAB, it was very very early( nothing like lasy 18 week loss) Saw MFM after the 18 week loss last November Nkechi Fernando MD Attn: Accounting[address] [facility], [place], [address], [facility] 09/08/2023 17:23:47 5 text/html Annual GYNReported by PatientGenitourinary symptomsFor menstrual cycle, patient reportsnormal menses. For urinary symptoms, patient reportsno hematuriaandno incontinence. For vulva, patient reportsno genital lesion. For vagina, patient reportsnormal vaginal discharge.Breast symptomsFor breast, patient reportsno breast pain,no breast lump, andno nipple discharge.Endocrine symptomsFor sexual complaints, patient reportsno sexual complaints,no pain during intercourse, andnormal libido. For menopausal symptoms, patient reportsno menopausal symptomsandnormal vaginal lubrication.Psychological symptomsFor psychological symptoms, patient reportsno depression,no anxiety, andno pmdd.ROS as noted in the HPI had 18 week loss 3periods irregular recently, not missing any, just variable time and duration not interested in contraception at this point Nkechi Fernando MD Attn: Accounting,[address] [facility], [place], [address], [facility] 05/22/2024 16:01:33 OBGyn Episode Ob Episode Information Episode Created Date Number of Fetuses Patient Bloodtype Patient rh Status Prepregnancy Weight lbs Domestic Partner Domestic Partner Phone Father Name Banker Mason Status 02/16/20 18 1 A Positive CLOSED Fetus Data First Name Last Name Admitted to NICU Weight (g) Sex Living Outcome Pediatric Complications Fetus ID Race Codes Race Delivery Type caron salvador 2948.34 8 F true Full Term [id number] White Vaginal Michel Calculation Initial Michel Date Initial Exam Date Initial Exam Provider Initial Ultrasound Date Last Menstrual Period Date Ultra Sound Weeks Gestation 09/01/2018 02/15/2018 03/30/2018 11/23/2017 17 Eighteen To Twenty Week Michel Update Ultra Sound Date Fundal Height At Umbil Quickening Date Ultra Sound Latest Weeks Gestation Final Michel Confirmed By Final Michel Confirmed Date Final Michel Date Ultra Sound Latest Days Gestation 0 08/31/19 19 0 Pre- Flowsheet Flowsheet Date 02/15/2018 [place] Score Blood Edema Fundus Height Fundus Units Glucose Ketones Leukocytes Nitrite Labor Signs Protein Cervic Dilation Cervic Effacement Cervic Station 12 wks 0cm 0% -4 Type Weight in lbs Pre/Post Dialysis Refused Weight 120.224675137520 BP Diastolic BP Location Tested BP Systolic BP Type 62 102 sitting Fetus Heart Rate Present A 164 Present Fetus Movement Comments #3, I caught last one while production assembler for HextNormal NOB exam, no complaints Flowsheet Date 03/14/2018 [place] Score Blood Edema Fundus Height Fundus Units Glucose Ketones Leukocytes Nitrite Labor Signs Protein Cervic Dilation Cervic Effacement Cervic Station Type Weight in lbs Pre/Post Dialysis Refused Weight 125.270148795714 BP Diastolic BP Location Tested BP Systolic BP Type 66 98 sitting Fetus Heart Rate Present A 145 Present Fetus Movement Comments doing well, US in 2 weeks Flowsheet Date 04/03/2018 [place] Score Blood Edema Fundus Height Fundus Units Glucose Ketones Leukocytes Nitrite Labor Signs Protein Cervic Dilation Cervic Effacement Cervic Station Type Weight in lbs Pre/Post Dialysis Refused BP Diastolic BP Location Tested BP Systolic BP Type Fetus Heart Rate Present A 146 Present Fetus Movement A Yes Comments Third baby; the US showed a couple of things that will need a level [address] [place]. A 2 cm mass in the maternal bladder, as well as a subjectively small face.Will try to arrange a level 2 US before next apt. with me in 4 weeks Flowsheet Date 05/01/2018 [place] Score Blood Edema Fundus Height Fundus Units Glucose Ketones Leukocytes Nitrite Labor Signs Protein Cervic Dilation Cervic Effacement Cervic Station none 21 Type Weight in lbs Pre/Post Dialysis Refused With clothes 132.682496847812 BP Diastolic BP Location Tested BP Systolic BP Type 64 106 sitting Fetus Heart Rate Present A 154 Present Fetus Movement A Yes Comments doing well.Reviewed HROB vis it and US; findings all reassuring.suggestion for Urology consult regarding non-vascular 2cm mass seen in maternal bladdersugar test next time Flowsheet Date 05/29/2018 [place] Score Blood Edema Fundus Height Fundus Units Glucose Ketones Leukocytes Nitrite Labor Signs Protein Cervic Dilation Cervic Effacement Cervic Station none 24 cm Type Weight in lbs Pre/Post Dialysis Refused With clothes 135.556349480435 BP Diastolic BP Location Tested BP Systolic BP Type 75 106 sitting Fetus Heart Rate Present A 154 Present Fetus Movement A Yes Comments doing well, sugar test today discussed urology challenges for consult. WIll try a side-bar with colleagues.US not worrisome for malignancy, but would be nice to see urologist anyway. Flowsheet Date 06/22/2018 [place] Score Blood Edema Fundus Height Fundus Units Glucose Ketones Leukocytes Nitrite Labor Signs Protein Cervic Dilation Cervic Effacement Cervic Station none 27 cm Type Weight in lbs Pre/Post Dialysis Refused With clothes 141.919023610605 BP Diastolic BP Location Tested BP Systolic BP Type 72 116 sitting Fetus Heart Rate Present A 146 Present Fetus Movement A Yes Comments doing well, no new issues, g ood spirits Flowsheet Date 07/13/2018 [place] Score Blood Edema Fundus Height Fundus Units Glucose Ketones Leukocytes Nitrite Labor Signs Protein Cervic Dilation Cervic Effacement Cervic Station none 30 cm Type Weight in lbs Pre/Post Dialysis Refused With clothes 142.680345954183 BP Diastolic BP Location Tested BP Systolic BP Type 72 110 sitting Fetus Heart Rate Present A 144 Present Fetus Movement A Yes Comments doing well, no big issues, G BS next timediscussed production assembler options for delivery Flowsheet Date 07/27/2018 [place] Score Blood Edema Fundus Height Fundus Units Glucose Ketones Leukocytes Nitrite Labor Signs Protein Cervic Dilation Cervic Effacement Cervic Station none 32 cm Type Weight in lbs Pre/Post Dialysis Refused With clothes 147.191969143549 BP Diastolic BP Location Tested BP Systolic BP Type 62 102 sitting Fetus Heart Rate Present A 147 Present Fetus Movement A Yes Comments Doing well, no big issuesGBS and TDAP todaycervix check next time Flowsheet Date 08/10/2018 [place] Score Blood Edema Fundus Height Fundus Units Glucose Ketones Leukocytes Nitrite Labor Signs Protein Cervic Dilation Cervic Effacement Cervic Station 33 cm 3cm 60% -2 Type Weight in lbs Pre/Post Dialysis Refused With clothes 147.061629649702 BP Diastolic BP Location Tested BP Systolic BP Type 66 116 sitting Fetus Heart Rate Present A 151 Present Fetus Movement A Yes Comments Favorable cervix, doing well , induced first time - got epidural, second time went fast, no epidurallabor discussed Flowsheet Date 08/17/2018 [place] Score Blood Edema Fundus Height Fundus Units Glucose Ketones Leukocytes Nitrite Labor Signs Protein Cervic Dilation Cervic Effacement Cervic Station none 34 cm Type Weight in lbs Pre/Post Dialysis Refused With clothes 144.566134633292 BP Diastolic BP Location Tested BP Systolic BP Type 76 102 sitting Fetus Heart Rate Present A 148 Present Fetus Movement A Yes Comments doing well, no planned 39 we ek induction - hoping for spontaneous labor like last baby.discussed my trip to [place] ; will consider induction by then perhaps. Gave reassurance production assembler Drs all excellent. Flowsheet Date 08/24/2018 [place] Score Blood Edema Fundus Height Fundus Units Glucose Ketones Leukocytes Nitrite Labor Signs Protein Cervic Dilation Cervic Effacement Cervic Station 35 cm Type Weight in lbs Pre/Post Dialysis Refused With clothes 148.534703717976 BP Diastolic BP Location Tested BP Systolic BP Type 72 112 sitting Fetus Heart Rate Present A 145 Present Fetus Movement A Yes Comments doing well, offered 39+ week induction again; declinedIf here next week will arrange post-dates US and NST Flowsheet Date 08/29/2018 [place] Score Blood Edema Fundus Height Fundus Units Glucose Ketones Leukocytes Nitrite Labor Signs Protein Cervic Dilation Cervic Effacement Cervic Station 36 cm Type Weight in lbs Pre/Post Dialysis Refused With clothes 144.819910920578 BP Diastolic BP Location Tested BP Systolic BP Type 72 116 sitting Fetus Heart Rate Present A 145 Present Fetus Movement A Yes Comments Due date tomorrow. Will get US for Lexie and NST before weekend - result to on- call doctorIf still next week will arrange 41+ week induction Menstrual History Last Menstrual Date Menses Monthly On Bcp Conception Prior Menses Frequency Hcg Plus Date Menarche Onset Age 0811/23/2017 Delivery Information Delivery Date Delivery Type Labor Anesthesia Weeks Gestation Incision Type Labor Labor Length Hrs Delivered By Post Complications Tubal Sterilization Discharge Date Comments 9 Sponta neous 40.6 scott Velazquez MD (O/c) 09/07/2018 Discharge Information Feeding Method Contraceptive Method Maternal HG B and HCT Levels Breast Ob Episode Information Episode Created Date Number of Fetuses Patient Bloodtype Patient rh Status Prepregnancy Weight lbs Domestic Partner Domestic Partner Phone Father Name Banker Mason Status 05/17/19 24 1 DELETED Michel Calculation Initial Michel Date Initial Exam Date Initial Exam Provider Initial Ultrasound Date Last Menstrual Period Date Ultra Sound Weeks Gestation 0 Eighteen To Twenty Week Michel Update Ultra Sound Date Fundal Height At Umbil Quickening Date Ultra Sound Latest Weeks Gestation Final Michel Confirmed By Final Michel Confirmed Date Final Michel Date Ultra Sound Latest Days Gestation 0 0 Menstrual History Last Menstrual Date Menses Monthly On Bcp Conception Prior Menses Frequency Hcg Plus Date Menarche Onset Age Delivery Information Delivery Date Delivery Type Labor Anesthesia Weeks Gestation Incision Type Labor Labor Length Hrs Delivered By Post Complications Tubal Sterilization Discharge Date Comments 3 18 Discharge Information Feeding Method Contraceptive Method Maternal HG B and HCT Levels Ob Episode Information Episode Created Date Number of Fetuses Patient Bloodtype Patient rh Status Prepregnancy Weight lbs Domestic Partner Domestic Partner Phone Father Name Banker Mason Status 07/22/19 23 1 A Positive CLOSED Fetus Data First Name Last Name Admitted to NICU Weight (g) Sex Living Outcome Pediatric Complications Fetus ID Race Codes Race Delivery Type Demise [id number] Michel Calculation Initial Michel Date Initial Exam Date Initial Exam Provider Initial Ultrasound Date Last Menstrual Period Date Ultra Sound Weeks Gestation 01/28/2023 07/21/2022 04/23/2022 0 Eighteen To Twenty Week Michel Update Ultra Sound Date Fundal Height At Umbil Quickening Date Ultra Sound Latest Weeks Gestation Final Michel Confirmed By Final Michel Confirmed Date Final Michel Date Ultra Sound Latest Days Gestation 0 01/29/20 23 0 Pre-francesca Flowsheet Flowsheet Date 07/21/2022 Vail Score Blood Edema Fundus Height Fundus Units Glucose Ketones Leukocytes Nitrite Labor Signs Protein Cervic Dilation Cervic Effacement Cervic Station 12 wks Type Weight in lbs Pre/Post Dialysis Refused With clothes 127.292520049886 BP Diastolic BP Location Tested BP Systolic BP Type 69 112 sitting Fetus Heart Rate Present A 164 Fetus Movement Comments Will be 5th baby. Youngest i s just 1 1/2.Wild pay, so will not order materniti genetics test until we know cost.Already had an 8 week US to confirm IUP Flowsheet Date 08/23/2022 Vail Score Blood Edema Fundus Height Fundus Units Glucose Ketones Leukocytes Nitrite Labor Signs Protein Cervic Dilation Cervic Effacement Cervic Station none 18 wks none neg Type Weight in lbs Pre/Post Dialysis Refused With clothes 135.800587443784 BP Diastolic BP Location Tested BP Systolic BP Type 85 129 sitting Fetus Heart Rate Present A 145 Present Fetus Movement Comments doing well, 5th babyplan live jesus US before next visit Flowsheet Date 09/13/2022 Vail Score Blood Edema Fundus Height Fundus Units Glucose Ketones Leukocytes Nitrite Labor Signs Protein Cervic Dilation Cervic Effacement Cervic Station Type Weight in lbs Pre/Post Dialysis Refused BP Diastolic BP Location Tested BP Systolic BP Type Fetus Heart Rate Present Fetus Movement Comments Had anatomy US today. Was fo und to have a demise measuring between 17-18 weekslong talk today about potential causes ( genetics, heart, etc)will arrange cytotec induction when convenient for them Menstrual History Last Menstrual Date Menses Monthly On Bcp Conception Prior Menses Frequency Hcg Plus Date Menarche Onset Age 1204/23/2022 true Genetic Screening And Infection History Question Response Note Patient's Age Will Be 35 Years Or Older At Estim ated Date of Delivery true Thalassemia (Ukrainian, Urdu, Mediterranean, Or Background): MCV < 80 false Neural Tube Defect (Meningomyelocele, Spina Bifi da, Or Anencephaly) false Congenital Heart Defect false Down Syndrome false Bam-Sachs (eg, Worship, Cajun, Taiwanese-New Zealander) f alse Cheo Disease false Sickle Cell Disease Or Trait () false Hemophilia Or Other Blood Disorders false Muscular Dystrophy false Cystic Fibrosis false Baca's Chorea false Mental Retardation/Autism false If Yes, Was Person Tested For Fragile X? false Other Inherited Genetic Or Chromosomal Disorder false Maternal Metabolic Disorder (eg, Type 1 Diabetes , PKU) false Patient Or Baby's Father Had A Child With Defects Not Listed Above false Recurrent Loss, Or A Stillbirth false Medications (including Suppl ements, Vitamins, Herbs, OTC Drugs), Illicit/Recreational Drugs, Alcohol false If Yes, Agent(s) And Strength/Dosage false Any Other Genetic History false Live With Someone With TB Or Exposed To TB false Patient Or Partner Has History Of Genital Herpes false Rash Or Viral Illness Since Last Menstrual Perio d false History Of STD, Gonorrhea, Chlamydia, HPV, Syphi lis false Other Infection History false History of HIV false History of Hepatitis false Prior GBS-infected child false Delivery Information Delivery Date Delivery Type Labor Anesthesia Weeks Gestation Incision Type Labor Labor Length Hrs Delivered By Post Complications Tubal Sterilization Discharge Date Comments 3 20.5 IUFD Discharge Information Feeding Method Contraceptive Method Maternal HG B and HCT Levels Ob Episode Information Episode Created Date Number of Fetuses Patient Bloodtype Patient rh Status Prepregnancy Weight lbs Domestic Partner Domestic Partner Phone Father Name Banker Mason Status 08/21/19 21 1 A Positive CLOSED Fetus Data First Name Last Name Admitted to NICU Weight (g) Sex Living Outcome Pediatric Complications Fetus ID Race Codes Race Delivery Type 3240.37 [id number] F true Full Term 69804 2106-3 White Vaginal Michel Calculation Initial Michel Date Initial Exam Date Initial Exam Provider Initial Ultrasound Date Last Menstrual Period Date Ultra Sound Weeks Gestation 03/06/2021 08/20/2020 10/08/2020 05/30/2020 19 Eighteen To Twenty Week Michel Update Ultra Sound Date Fundal Height At Umbil Quickening Date Ultra Sound Latest Weeks Gestation Final Michel Confirmed By Final Michel Confirmed Date Final Michel Date Ultra Sound Latest Days Gestation 0 02/18/2021 03/06/20 21 0 Pre-francesca Flowsheet Flowsheet Date 08/20/2020 Vail Score Blood Edema Fundus Height Fundus Units Glucose Ketones Leukocytes Nitrite Labor Signs Protein Cervic Dilation Cervic Effacement Cervic Station 13 wks 0cm 0% -4 Type Weight in lbs Pre/Post Dialysis Refused With clothes 137.71041716471 BP Diastolic BP Location Tested BP Systolic BP Type Fetus Heart Rate Present A 162 Present Fetus Movement Comments 4th . Doing well. N ever had her bladder cyst asessed by urology.( was seen on all her US exams last time)Went overdue last two pregnancies, no induction. Both girls were O-P.Likely no MSAFP despite advanced maternal age. Flowsheet Date 10/02/2020 Vail Score Blood Edema Fundus Height Fundus Units Glucose Ketones Leukocytes Nitrite Labor Signs Protein Cervic Dilation Cervic Effacement Cervic Station none 17 wks none neg Type Weight in lbs Pre/Post Dialysis Refused With clothes 138.613367856833 BP Diastolic BP Location Tested BP Systolic BP Type 74 108 sitting Fetus Heart Rate Present A 140 Present Fetus Movement Comments doing well, no new issuespla n US before next visit Flowsheet Date 10/23/2020 Vail Score Blood Edema Fundus Height Fundus Units Glucose Ketones Leukocytes Nitrite Labor Signs Protein Cervic Dilation Cervic Effacement Cervic Station none 20 wks none neg Type Weight in lbs Pre/Post Dialysis Refused With clothes 140.590360448967 BP Diastolic BP Location Tested BP Systolic BP Type 74 106 sitting Fetus Heart Rate Present A 138 Fetus Movement A Yes Comments girl #3, all anatomy looked good on USno complaints, good spirits Flowsheet Date 11/20/2020 Vail Score Blood Edema Fundus Height Fundus Units Glucose Ketones Leukocytes Nitrite Labor Signs Protein Cervic Dilation Cervic Effacement Cervic Station none 28 cm none neg Type Weight in lbs Pre/Post Dialysis Refused With clothes 142.978184692125 BP Diastolic BP Location Tested BP Systolic BP Type 70 112 sitting Fetus Heart Rate Present A 148 Fetus Movement A Yes Comments pt tolerating well baby moving often, very activeno complaints, no issuessugar test at next appt Flowsheet Date 12/12/2020 Vail Score Blood Edema Fundus Height Fundus Units Glucose Ketones Leukocytes Nitrite Labor Signs Protein Cervic Dilation Cervic Effacement Cervic Station none 28 cm none neg Type Weight in lbs Pre/Post Dialysis Refused With clothes 146.959406151410 BP Diastolic BP Location Tested BP Systolic BP Type 72 110 sitting Fetus Heart Rate Present A 165 Fetus Movement A Yes Comments 28 weeks doing well. Sugar t est ongoing.no new issues Flowsheet Date 01/02/2021 Vail Score Blood Edema Fundus Height Fundus Units Glucose Ketones Leukocytes Nitrite Labor Signs Protein Cervic Dilation Cervic Effacement Cervic Station none 30 cm none neg Type Weight in lbs Pre/Post Dialysis Refused With clothes 146.49524824568 BP Diastolic BP Location Tested BP Systolic BP Type 66 106 sitting Fetus Heart Rate Present A 159 Present Fetus Movement A Yes Comments doing well, passed sugar saran t, no new issuesGBS next visit Flowsheet Date 01/23/2021 Vail Score Blood Edema Fundus Height Fundus Units Glucose Ketones Leukocytes Nitrite Labor Signs Protein Cervic Dilation Cervic Effacement Cervic Station none 32 cm none Type Weight in lbs Pre/Post Dialysis Refused With clothes 150.805775919959 BP Diastolic BP Location Tested BP Systolic BP Type 84 126 sitting Fetus Heart Rate Present A 152 Present Fetus Movement A Yes Comments doing well, GBS done todayho ping to get vaccine soon Flowsheet Date 02/10/2021 Vail Score Blood Edema Fundus Height Fundus Units Glucose Ketones Leukocytes Nitrite Labor Signs Protein Cervic Dilation Cervic Effacement Cervic Station none 34 cm Type Weight in lbs Pre/Post Dialysis Refused BP Diastolic BP Location Tested BP Systolic BP Type 88 126 sitting Fetus Heart Rate Present A 143 Present Fetus Movement A Yes Comments doing well, 4th baby, usuall y makes it to EDC a few ctx, nothing severelabor precautions Flowsheet Date 02/18/2021 Vail Score Blood Edema Fundus Height Fundus Units Glucose Ketones Leukocytes Nitrite Labor Signs Protein Cervic Dilation Cervic Effacement Cervic Station none 35 cm none neg 3cm 70% -2 Type Weight in lbs Pre/Post Dialysis Refused With clothes 152.941358585611 BP Diastolic BP Location Tested BP Systolic BP Type 84 118 sitting Fetus Heart Rate Present A 145 Present Fetus Movement A Yes Comments 37 weeks, 4th baby, doing we llcervix very favorablelabor precautions Flowsheet Date 02/24/2021 Vail Score Blood Edema Fundus Height Fundus Units Glucose Ketones Leukocytes Nitrite Labor Signs Protein Cervic Dilation Cervic Effacement Cervic Station none 35 cm none neg Type Weight in lbs Pre/Post Dialysis Refused With clothes 155.98808335664 BP Diastolic BP Location Tested BP Systolic BP Type 84 120 sitting Fetus Heart Rate Present A 143 Fetus Movement A Yes Comments doing well, declines inducti on for now, back in a weeklabor precautions / kick counts Flowsheet Date 04/20/2021 Vail Score Blood Edema Fundus Height Fundus Units Glucose Ketones Leukocytes Nitrite Labor Signs Protein Cervic Dilation Cervic Effacement Cervic Station Type Weight in lbs Pre/Post Dialysis Refused BP Diastolic BP Location Tested BP Systolic BP Type Fetus Heart Rate Present Fetus Movement Comments Menstrual History Last Menstrual Date Menses Monthly On Bcp Conception Prior Menses Frequency Hcg Plus Date Menarche Onset Age 0205/30/2020 true false Genetic Screening And Infection History Question Response Note Patient's Age Will Be 35 Years Or Older At Estim ated Date of Delivery false Thalassemia (Ukrainian, Urdu, Mediterranean, Or Background): MCV < 80 false Neural Tube Defect (Meningomyelocele, Spina Bifi da, Or Anencephaly) false Congenital Heart Defect false Down Syndrome false Bam-Sachs (eg, Worship, Cajun, Taiwanese-New Zealander) f alse Cheo Disease false Sickle Cell Disease Or Trait () false Hemophilia Or Other Blood Disorders false Muscular Dystrophy false Cystic Fibrosis false Hraitha's Chorea false Mental Retardation/Autism false If Yes, Was Person Tested For Fragile X? false Other Inherited Genetic Or Chromosomal Disorder false Maternal Metabolic Disorder (eg, Type 1 Diabetes , PKU) false Patient Or Baby's Father Had A Child With Defects Not Listed Above false Recurrent Loss, Or A Stillbirth false Medications (including Suppl ements, Vitamins, Herbs, OTC Drugs), Illicit/Recreational Drugs, Alcohol false If Yes, Agent(s) And Strength/Dosage false Any Other Genetic History false Live With Someone With TB Or Exposed To TB false Patient Or Partner Has History Of Genital Herpes false Rash Or Viral Illness Since Last Menstrual Perio d false History Of STD, Gonorrhea, Chlamydia, HPV, Syphi lis false Other Infection History false History of HIV false History of Hepatitis false Prior GBS-infected child false Delivery Information Delivery Date Delivery Type Labor Anesthesia Weeks Gestation Incision Type Labor Labor Length Hrs Delivered By Post Complications Tubal Sterilization Discharge Date Comments 1 [facility]- idural 38.6 omari Gan 02/28/2021 Discharge Information Feeding Method Contraceptive Method Maternal HG B and HCT Levels Ob Episode Information Episode Created Date Number of Fetuses Patient Bloodtype Patient rh Status Prepregnancy Weight lbs Domestic Partner Domestic Partner Phone Father Name Banker Mason Status 05/19/19 17 1 A Positive Viral Sarmiento CLOSED Fetus Data First Name Last Name Admitted to NICU Weight (g) Sex Living Outcome Pediatric Complications Fetus ID Race Codes Race Delivery Type Brian salvador false 3231.84 3 F true Full Term 32544 2106-3 White Vaginal Michel Calculation Initial Michel Date Initial Exam Date Initial Exam Provider Initial Ultrasound Date Last Menstrual Period Date Ultra Sound Weeks Gestation 01/21/2017 06/03/2016 [email or web address] 06/11/2016 04/16/2016 8 Eighteen To Twenty Week Michel Update Ultra Sound Date Fundal Height At Umbil Quickening Date Ultra Sound Latest Weeks Gestation Final Michel Confirmed By Final Michel Confirmed Date Final Michel Date Ultra Sound Latest Days Gestation 09/14/19 17 21 [email or web address] 06/14/2016 01/22/20 17 4 Pre- Flowsheet Flowsheet Date 05/19/2016 Vail Score Blood Edema Fundus Height Fundus Units Glucose Ketones Leukocytes Nitrite Labor Signs Protein Cervic Dilation Cervic Effacement Cervic Station Type Weight in lbs Pre/Post Dialysis Refused 132.818709782680 BP Diastolic BP Location Tested BP Systolic BP Type 70 124 sitting Fetus Heart Rate Present Fetus Movement Comments folder given. Pren atal labs plus toxo titers ordered. Rx PNVs sent to pharmacy. RTO 2 weeks for results and dating US order. Flowsheet Date 06/03/2016 Vail Score Blood Edema Fundus Height Fundus Units Glucose Ketones Leukocytes Nitrite Labor Signs Protein Cervic Dilation Cervic Effacement Cervic Station Type Weight in lbs Pre/Post Dialysis Refused 133.960822849351 BP Diastolic BP Location Tested BP Systolic BP Type 74 116 sitting Fetus Heart Rate Present Fetus Movement Comments labs reviewed. RNI dwp. Dating US ordered. PE, pap, GC/chlam cx done. RTO 4 weeks. Flowsheet Date 06/30/2016 Vail Score Blood Edema Fundus Height Fundus Units Glucose Ketones Leukocytes Nitrite Labor Signs Protein Cervic Dilation Cervic Effacement Cervic Station none neg Type Weight in lbs Pre/Post Dialysis Refused 138.966932610827 BP Diastolic BP Location Tested BP Systolic BP Type 68 108 sitting Fetus Heart Rate Present Fetus Movement Comments GC/Chlam cx neg, dwp. Pt. de nies n/v. Doing well. RTO 4 weeks. Flowsheet Date 08/04/2016 Vail Score Blood Edema Fundus Height Fundus Units Glucose Ketones Leukocytes Nitrite Labor Signs Protein Cervic Dilation Cervic Effacement Cervic Station none neg Type Weight in lbs Pre/Post Dialysis Refused 139.199085487089 BP Diastolic BP Location Tested BP Systolic BP Type 74 124 sitting Fetus Heart Rate Present A 150 Present Fetus Movement A No Comments Quad screen discussed, decli alexandr. RTO 4 weeks. Anatomy US order next visit, dwp. Flowsheet Date 09/01/2016 Vail Score Blood Edema Fundus Height Fundus Units Glucose Ketones Leukocytes Nitrite Labor Signs Protein Cervic Dilation Cervic Effacement Cervic Station none neg Type Weight in lbs Pre/Post Dialysis Refused 143.154626418599 BP Diastolic BP Location Tested BP Systolic BP Type 72 120 sitting Fetus Heart Rate Present A 150 Present Fetus Movement Comments Anatomy US ordered. Pt. with c/o diarrhea in AM. Advised Immodium. RTO 4 weeks. Flowsheet Date 09/29/2016 Vail Score Blood Edema Fundus Height Fundus Units Glucose Ketones Leukocytes Nitrite Labor Signs Protein Cervic Dilation Cervic Effacement Cervic Station 23 cm none neg Type Weight in lbs Pre/Post Dialysis Refused 146.978633529496 BP Diastolic BP Location Tested BP Systolic BP Type 64 132 sitting Fetus Heart Rate Present A 150 Present Fetus Movement A Yes Comments Pt. with c/o panic/anxiety e pisodes. It does not keep her from doing things. Precautions discussed. Third trimester labs and TdaP next visit. Instructions discussed. RTO 4 weeks. Flowsheet Date 11/01/2016 Vail Score Blood Edema Fundus Height Fundus Units Glucose Ketones Leukocytes Nitrite Labor Signs Protein Cervic Dilation Cervic Effacement Cervic Station 28 cm none neg Type Weight in lbs Pre/Post Dialysis Refused 150.163916566304 BP Diastolic BP Location Tested BP Systolic BP Type 80 122 sitting Fetus Heart Rate Present A 140 Present Fetus Movement A Yes Comments Third trimester labs today. TdaP discussed, given. PT labor prec/kick counts discussed. RTO 2 weeks. Flowsheet Date 11/15/2016 Vail Score Blood Edema Fundus Height Fundus Units Glucose Ketones Leukocytes Nitrite Labor Signs Protein Cervic Dilation Cervic Effacement Cervic Station 30 none neg Type Weight in lbs Pre/Post Dialysis Refused 152.960595098211 BP Diastolic BP Location Tested BP Systolic BP Type 70 120 sitting Fetus Heart Rate Present A 135 Present Fetus Movement A Yes Comments Third trimester labs wnl, dw p. PT labor prec/kick counts discussed. RTO 2 weeks. Flowsheet Date 11/30/2016 Vail Score Blood Edema Fundus Height Fundus Units Glucose Ketones Leukocytes Nitrite Labor Signs Protein Cervic Dilation Cervic Effacement Cervic Station Type Weight in lbs Pre/Post Dialysis Refused 153.150257201152 BP Diastolic BP Location Tested BP Systolic BP Type 76 128 sitting Fetus Heart Rate Present A 150 Present Fetus Movement A Yes Comments PT labor prec/kick counts di scussed. RTO 2 weeks. Flowsheet Date 12/14/2016 Vail Score Blood Edema Fundus Height Fundus Units Glucose Ketones Leukocytes Nitrite Labor Signs Protein Cervic Dilation Cervic Effacement Cervic Station none neg Type Weight in lbs Pre/Post Dialysis Refused 154.114377596851 BP Diastolic BP Location Tested BP Systolic BP Type 72 124 sitting Fetus Heart Rate Present A 155 Present Fetus Movement A Yes Comments PT labor prec/kick counts di scussed. RTO 2 weeks. GBS next visit. Flowsheet Date 12/28/2016 Vail Score Blood Edema Fundus Height Fundus Units Glucose Ketones Leukocytes Nitrite Labor Signs Protein Cervic Dilation Cervic Effacement Cervic Station none neg 0cm Type Weight in lbs Pre/Post Dialysis Refused 153.990308205219 BP Diastolic BP Location Tested BP Systolic BP Type 62 104 sitting Fetus Heart Rate Present A 140 Present Fetus Movement A Yes Comments Flu shot discussed. Pt. to eugenio gr about it. GBS done today. Labor prec./kick counts discussed. RTO one week. Flowsheet Date 01/05/2017 Vail Score Blood Edema Fundus Height Fundus Units Glucose Ketones Leukocytes Nitrite Labor Signs Protein Cervic Dilation Cervic Effacement Cervic Station none neg 1cm Type Weight in lbs Pre/Post Dialysis Refused 155.82196708862 BP Diastolic BP Location Tested BP Systolic BP Type 80 130 sitting Fetus Heart Rate Present A 145 Present Fetus Movement A Yes Comments Labor prec/kick counts discu ssed. RTO one week. Flowsheet Date 01/12/2017 Vail Score Blood Edema Fundus Height Fundus Units Glucose Ketones Leukocytes Nitrite Labor Signs Protein Cervic Dilation Cervic Effacement Cervic Station none neg Type Weight in lbs Pre/Post Dialysis Refused 155.016946502491 BP Diastolic BP Location Tested BP Systolic BP Type 74 124 sitting Fetus Heart Rate Present A 130 Present Fetus Movement A Yes Comments Flu shot discussed, given. L abor prec/kick counts discussed. RTO 1 week. Flowsheet Date 01/20/2017 Vail Score Blood Edema Fundus Height Fundus Units Glucose Ketones Leukocytes Nitrite Labor Signs Protein Cervic Dilation Cervic Effacement Cervic Station none neg Type Weight in lbs Pre/Post Dialysis Refused 154.545232142432 BP Diastolic BP Location Tested BP Systolic BP Type 80 118 sitting Fetus Heart Rate Present A 140 Present Fetus Movement A Yes Comments Pt. was 3 cm in L&D on . No Uctx since then. Labor prec/kick counts discussed. RTO one week. IOL scheduled for 01/31/17. Flowsheet Date 03/08/2017 Vail Score Blood Edema Fundus Height Fundus Units Glucose Ketones Leukocytes Nitrite Labor Signs Protein Cervic Dilation Cervic Effacement Cervic Station Type Weight in lbs Pre/Post Dialysis Refused 136.305214209778 BP Diastolic BP Location Tested BP Systolic BP Type 70 110 sitting Fetus Heart Rate Present Fetus Movement Comments Menstrual History Last Menstrual Date Menses Monthly On Bcp Conception Prior Menses Frequency Hcg Plus Date Menarche Onset Age 1204/16/2016 true false 7 7 14 Genetic Screening And Infection History Question Response Note Patient's Age Will Be 35 Yea rs Or Older At Estimated Date of Delivery false Thalassemia (Ukrainian, Urdu, Mediterranean, Or Background): MCV < 80 false Neural Tube Defect (Meningomyelocele, Spina Bifi da, Or Anencephaly) false Congenital Heart Defect false Down Syndrome false Bam-Sachs (eg, Worship, Cajun, Taiwanese-New Zealander) f alse Cheo Disease false Sickle Cell Disease Or Trait () false Hemophilia Or Other Blood Disorders false Muscular Dystrophy false Cystic Fibrosis false Baca's Chorea false Mental Retardation/Autism false Other Inherited Genetic Or Chromosomal Disorder false Maternal Metabolic Disorder (eg, Type 1 Diabetes , PKU) false Patient Or Baby's Father Had A Child With Defects Not Listed Above false Recurrent Loss, Or A Stillbirth false Medications (including Suppl ements, Vitamins, Herbs, OTC Drugs), Illicit/Recreational Drugs, Alcohol true Any Other Genetic History false Live With Someone With TB Or Exposed To TB false Patient Or Partner Has History Of Genital Herpes false Rash Or Viral Illness Since Last Menstrual Perio d false History Of STD, Gonorrhea, Chlamydia, HPV, Syphi lis false Other Infection History false Delivery Information Delivery Date Delivery Type Labor Anesthesia Weeks Gestation Incision Type Labor Labor Length Hrs Delivered By Post Complications Tubal Sterilization Discharge Date Comments [address] Spont[address] [facility] Lonnie Anderson Discharge Information Feeding Method Contraceptive Method Maternal HG B and HCT Levels Breast Ob Episode Information Episode Created Date Number of Fetuses Patient Bloodtype Patient rh Status Prepregnancy Weight lbs Domestic Partner Domestic Partner Phone Father Name Banker Mason Status 05/19/19 17 1 CLOSED Fetus Data First Name Last Name Admitted to NICU Weight (g) Sex Living Outcome Pediatric Complications Fetus ID Race Codes Race Delivery Type 3345.24 1 M Full Term [id number] Vaginal Michel Calculation Initial Michel Date Initial Exam Date Initial Exam Provider Initial Ultrasound Date Last Menstrual Period Date Ultra Sound Weeks Gestation 0 Eighteen To Twenty Week Michel Update Ultra Sound Date Fundal Height At Umbil Quickening Date Ultra Sound Latest Weeks Gestation Final Michel Confirmed By Final Michel Confirmed Date Final Michel Date Ultra Sound Latest Days Gestation 0 0 Menstrual History Last Menstrual Date Menses Monthly On Bcp Conception Prior Menses Frequency Hcg Plus Date Menarche Onset Age Delivery Information Delivery Date Delivery Type Labor Anesthesia Weeks Gestation Incision Type Labor Labor Length Hrs Delivered By Post Complications Tubal Sterilization Discharge Date Comments 3 Discharge Information Feeding Method Contraceptive Method Maternal HG B and HCT Levels
--- OUTSIDE RECORDS SUMMARY | 2025-04-16 18:14 | XMS_ITS | Clinical Summary ---
Author Organization [facility] Address [address] [place] [address] Care Team Providers Care Fat Purification Worker Name Role Phone Celena Zavala DO Primary Care Provider [phone] Allergies No known active allergies Medications [id number] fum-folic [id number] [id number] mg-mcg-mg combo packIndications: Take 1 tablet/caps ule by mouth daily. Active Active Problems Problem Noted Date Diagnosed Date Episodic lightheadedness 05/06/2023 Assessment & Plan (05/06/2023 12:50 PM MOHS SURGEON): Intermittent and random. Also with blurry vision for seconds. No other neurological symptoms. Etiology unclear: Orthostatic versus metabolic derangement versus side effect of visual change. Routine labs ordered. Start symptoms log to help ID triggers. F/u 3 months or sooner if worsen. Adjustment disorder with anxiety 05/06/2023 Assessment & Plan (05/06/2023 12:51 PM MOHS SURGEON): Ongoing. FRACISCO-7 score 11. Moderate anxiety. Likely situational and related to loss of child during . Recommend counseling. Patient can try [facility], her contact insurance for a list of counselors demise before 20 weeks with retention of d ead fetus 09/15/2022 Annual physical exam 05/05/2022 Assessment & Plan (05/06/2023 12:44 PM MOHS SURGEON): Doing well. BMI:23 (Normal) Routine labs ordered - BMP, Lipid Preventative Screening Due: Up to date Dietary and exercise recommendations given today. Recommend exercise at least 30 minutes moderate to vigorous exercise and some strength training most days of the week. (minimum 150 minutes weekly) Discussed MyPlate recommendations and increasing fruits and vegetables Vaccines due - Influenza, COVID booster recommended RTC annually for f/u Assessment & Plan (05/05/2022 10:39 AM MOHS SURGEON): Doing well. BMI:20.1 (Normal) Routine labs ordered - BMP, Lipid Preventative Screening Due: Mammo due 05/2022 Dietary and exercise recommendations given today. Recommend exercise at least 30 minutes moderate to vigorous exercise and some strength training most days of the week. (minimum 150 minutes weekly) Discussed MyPlate recommendations and increasing fruits and vegetables Vaccines due - Influenza recommended RTC annually for f/u Generalized anxiety disorder 05/05/2022 Assessment & Plan (05/05/2022 10:40 AM MOHS SURGEON): Chronic and mild. FRACISCO 7 score 5, PHQ 2 score 1 - Recommend counseling for therapy. List of counselors given. Can also look online. If symptoms persist or worsen can f/u to discuss medication treatment. Discussed option for Buspar Abnormal ultrasound 04/07/2018 Overview (04/07/2018): US@17w6d brain appears to be possibly under developed and the face smaller than expected. Supervision of high-risk , unspecified trimester 04/07/2018 Overview (04/07/2018): [] Co-management vs. [] Full [facility] Care; Referring Provider: Eulalio Flores MD [x] Dating Criteria: LMP=1T US [x] Labs: Rh [A+], Ab [neg], Rubella [Imm], HIV [NR] ,HepBSAg [neg], RPR, GC/CT [neg] [] Genetic Screening: [x] CBC 02/15/2018 Hct [40.1], Hgb [13.6], platelets [274] [] Early 1hr GTT (if indicated) [x] UDS neg 02/15/2018 [] UCx [x] Pap:02/15/2018 [abnormal], LGSIL [] LD ASA (if indicated) starting at 12 weeks [x] EPDS 0 [02/15/2018]; [facility] referral (if indicated) 2nd Tri Labs: [] Anatomy ultrasound [] CBC/1hr gtt at 24-28wks: [] Flu Shot (Sep-Dec) [] Tdap (27-36wks) [] Rhogam at 28 wks (if Rh neg): 3rd Tri Labs: [] CBC/HIV/RPR/T&S [] GBS [] GC/CT (if indicated) Counselling [] MOD: [] Place of delivery: [] MOC: [] Method of feeding: [] Supervisor [employer] Division: [] PP Depression Discussed, EPDS Abnormal cervical Papanicola ou smear affecting in first trimester 04/07/2018 Overview (04/07/2018): LGSIL 02/15/2018 Abnormal Pap smear of cervix Overview (04/07/2018): - LGSIL 2015 - Colpo 01/09/2015 - LEEP 03/2015 - 06/03/2016: negative - 02/15/2018: LGSIL Vaginal delivery 40 weeks gestation of Encounters Date Type Department Care Team Description 01/21/2025 3:07 PM CDT - 01/21/2025 11:59 PM CDT Hospital Encounter [facility] [address] [place] [id number] Encounter for other screening for malignant neoplasm of breast Discharge Disposition: Discharge to home or self care from Last 3 Months Immunizations Immunization Administration Dates Next Due Influenza, Quadrivalent, Karli l Culture-based MDCK, Preservative Free, Antibiotic Free, Intramuscular 02/08/2019 Influenza, Quadrivalent, Split, Intramuscular Influenza, Quadrivalent, Spl it, Preservative Free, Intramuscular 03/18/2018 MMR 01/27/2017 Tdap 07/27/2018,11/01/2016 Surgical History Surgery Date Site/Laterality Comments CERVICAL BIOPSY W/ LOOP ELEC TRODE EXCISION 03/25/2015 - 04/24/2015 APPENDECTOMY age 6 TONSILLECTOMY Medical History Medical History Date Comments Abnormal Pap smear of cervix 2014 Family History Medical History Relation Name Comments Colon cancer Father Malignant tumor of colon, age 71 Hypertension Mother Colon cancer Other 1 Family history of Cancer, colon; Hypertension Other 2 Family history of Hypertension; Breast cancer Neg Hx Ovarian cancer Neg Hx Thyroid cancer Neg Hx Relation Name Status Comments Father Mother Alive Other 1 Other 2 Social History Tobacco Use Types Packs/Day Years Used Date Smoking Tobacco: Never Smokeless Tobacco: Never Tobacco Cessation:Counseling Given: Yes Alcohol Use Standard Drinks/Week Comments Defer 0 (1 standard drink = 0.6 oz pur e alcohol) Social Connection and Isolation Panel Answer Date Recorded In a typical week, how many times do you talk on the phone with family, friends, or neighbors? More than three times a week 09/15/2022 How often do you get togethe r with friends or relatives? More than three times a week 09/15/2022 How often do you attend chur or islam services? Patient declined 09/15/2022 Do you belong to any clubs o r organizations such as latter-day groups, unions, fraternal or athletic groups, or school groups? Patient declined 09/15/2022 How often do you attend meet ings of the clubs or organizations you belong to? Patient declined 09/15/2022 Are you , , di vorced, , never , or living with a partner? 09/15/2022 AUDIT-C Answer Date Recorded Q1: How often do you have a drink containing alc ohol? Never 05/06/2023 Average Number of Drinks Not on file Frequency of Binge Drinking Not on file 04/25 Overall Financial Resource Strain (CARDIA) Answe r Date Recorded How hard is it for you to pa y for the very basics like food, housing, medical care, and heating? Not hard at all 09/15/2022 PHQ-2 Answer Date Recorded PHQ-2 Total Score (If total score is 3 or more points, staff should administer the PHQ-9) 1 05/06/2023 [facility] [place] of Occupat ional Health - Occupational Stress Questionnaire Answer Date Recorded Do you feel stress - tense, restless, nervous, or anxious, or unable to sleep at night because your mind is troubled all the time - these days? Not at all 09/15/2022 Exercise Vital Sign Answer Date Recorde d On average, how many days pe r week do you engage in moderate to strenuous exercise (like a brisk walk)? 3 days 09/15/2022 On average, how many minutes do you engage in exercise at this level? 20 min 09/15/2022 Hunger Vital Sign Answer Date Recorded Within the past 12 months, y ou worried that your food would run out before you got the money to buy more. Never true 09/16/19 23 Within the past 12 months, t he food you bought just didn't last and you didn't have money to get more. Never true 09/15/2022 PRAPARE - Transportation Answer Date Re corded In the past 12 months, has l ack of transportation kept you from medical appointments or from getting medications? No 08/24 In the past 12 months, has l ack of transportation kept you from meetings, work, or from getting things needed for daily living? No 09/15/2022 Housing Stability Vital Sign Answer Laron e Recorded In the last 12 months, was t here a time when you were not able to pay the mortgage or rent on time? No 09/15/2022 Number of Places Lived in the Last Year Not on f ile 09/15/2022 In the last 12 months, was t here a time when you did not have a steady place to sleep or slept in a skilled nursing (including now)? No 09/15/2022 Personal Safety Answer Date Recorded Have you ever been in or are you currently in a harmful physical or emotional relationship or is someone making you feel afraid or unsafe? Denies 09/15/2022 Comments No Sex and Gender Information Value Date Recorded Sex Assigned at Not on file Legal Sex Female 11:49 PM MOHS SURGEON Gender Identity Female 10/05/2022 12:39 AM CDT Sexual Orientation Not on file Obstetrics History Para Term AB IAB SAB Ectopic Multiple Livin g Live Births 5 5 4 1 0 4 4 Date Outcome GA Total Labor Labor/2nd/3rd Weight Sex Type Anes PTL Danuta A1 A5 Name Clin 2012 Term 3.345 kg (7 lb 6 oz) M Vag-Sp ont N Livin g 2016 Term 40w 5d 3.232 kg (7 lb 2 oz) F Vag-Sp ont Local N Livin g 2018 Term 40w 6d 2h 46m 1h 03m/1h 37m/0h 06m 3.13 kg (6 lb 14.4 oz) F Vag-Sp ont Combin ed Spinal /Epidu ral N Livin g 9 9 FEEZE L,GIR LTERR A Sal Mayen MD Complications:None Delivery [facility] 2020 Term 38w 6d 1h 52m 1h 33m/0h 09m/0h 10m 3.24 kg (7 lb 2.3 oz) F Vag-Sp ont None N Livin g 6 9 FEEZE L,GIR LTERR A Wallace Martins MD Complications:None Delivery [facility]) 2022 20w 5d 0h 17m 0h 17m 0.227 kg (8 oz) Vagina l None Demis e 0 0 FEEZE L,TER RASPE NDING FD Vinod r, Vicente boyd MD Complications:None Delivery [facility]) Last Filed Vital Signs Vital Sign Reading Time Taken Comments Blood Pressure 106/66 05/06/2023 10:33 AM MOHS SURGEON Pulse 86 05/06/2023 10:33 AM MOHS SURGEON Temperature 36.4 C (97.5 F) 05/06/2023 10:33 AM MOHS SURGEON Respiratory Rate 16 05/06/2023 10:33 AM MOHS SURGEON Oxygen Saturation 100% 05/06/2023 10:33 AM MOHS SURGEON Inhaled Oxygen Concentration - - Weight 64.4 kg (142 lb) 01/21/2025 3:13 PM CDT Height 160 cm (5' 3) 01/21/2025 3:13 PM CDT Body Mass Index 25.15 01/21/2025 3:13 PM CDT Plan of Treatment Health Maintenance Due Date Last Done Comments Hepatitis C Screening 1982 Hepatitis B Screening 2000 HPV Vaccines (1 - 3-dose SCDM series) 2009 Varicella Vaccines (1 of 2 - 13+ 2-dose series) 02/24/2017 Cervical Cancer Screening 05/18/2023 Depression Screening 05/06/2024 05/06/2023, 05/05/19 23 Regular Well Visit/Exam 18-64 05/06/2024 05/06/2023, 05/05/2022 Covid-19 Vaccine (2 - season) 2024 01/28/2021 Influenza Vaccine (#1) 2024 9, 03/18/2018, 01/12/2017 Breast Cancer Screening-Mammogram 01/21/2026 01/21/2025, 01/19/2024, 12/15/2022, Additional history exists DTaP/Tdap/Td Vaccine (4 - Td or Tdap) 02/10/2031 02/10/2021, 07/27/2018, 11/01/2016 Pneumococcal vaccine <65 Aged Out No longer eligible based on patient's age to complete this topic Procedures Procedure Name Priority Date/Time Associated Diagnosis Comments SCREENING MAMMOGRAM BILATERAL W DELICIA Schedule Routine, Read Routine (OP Routine) 01/21/2025 3:19 PM CDT Encounter for other screening for malignant neoplasm of breast from Last 3 Months Results * Screening Mammogram Bilateral W Delicia (01/21/2025 3:19 PM CDT) Anatomical Region Laterality Modality Breast Bilateral Mammography Impressions 01/21/2025 4:17 PM CDT Bilateral No evidence of malignancy in either breast. OVERALL BI-RADS FINAL ASSESSMENT: 1 - Negative RECOMMENDATION: Recommend bilateral annual screening mammography. Narrative 01/21/2025 4:17 PM CDT EXAMINATION: Screening Mammogram Bilateral W Delicia: 01/21/2025 COMPARISON: Relevant prior studies available at the time of interpretation were reviewed, including the most recent mammogram on: 01/19/2024. TECHNIQUE: Mammography was performed with 2D and 3D digital breast tomosynthesis (DBT) images. CAD was utilized. BREAST PARENCHYMAL COMPOSITION: There are scattered areas of fibroglandular density. FINDINGS: Bilateral There is no suspicious mass, calcification, or architectural distortion in either breast. There has been no suspicious interval change. us Eulalio Flores MD IMG MAMMO PROCEDURES F inal Result from Last 3 Months Insurance [facility] BLUE ACCESS [place] Advance Directives For more information, please contact: [phone] * Full Code (Latest Code Status on File) Date Activated Date Inactivated Comments 09/29/2022 8:31 AM * Full Code Date Activated Date Inactivated Comments 09/15/2022 3:57 AM 09/15/2022 10:48 PM Full CPR in case of cardiopulmonary arrest * Full Code Date Activated Date Inactivated Comments 02/27/2021 12:38 AM 02/28/2021 3:51 PM * Full Code Date Activated Date Inactivated Comments 02/26/2021 10:39 PM 02/27/2021 12:38 AM Full CPR i n case of cardiopulmonary arrest * Full Code Date Activated Date Inactivated Comments 09/05/2018 5:07 AM 09/06/2018 11:49 PM Full CPR in case of cardiopulmonary arrest Care Teams Fat Purification Worker Relationship Specialty Start Date End Date Celena Zavala DO [address] [place] [address] PCP - General Family Medicine 11/30/24
--- OUTSIDE RECORDS SUMMARY | 2025-04-16 18:14 | XMS_ITS ---
Author Organization [facility] Address [address] [place] [address] Phone Care Team Providers Care Master Certified Rv Technician Name Role Phone KALLI ASHTON, ZAIDA Palacios Primary Care Provider [phone] PAYAM ASHTON, ANDREW Lao Unavailable [phone] Plan of Treatment No Plan of Treatment Recorded Assessments Includes: Assessments for all patient encounters No Assessments Recorded Medical Equipment - Implanted Devices Includes: Current and historical Devices No Medical Equipment Recorded Medications Administered Includes: Administered Medications in patient's chart No Administered Medications Recorded Results Includes: Results from 04/16/2024 through 04/16/2025 No Results Recorded For Specified Dates History of Present Illness History of Present Illness not supported for this document type No History of Present Illness Recorded Social History No Social History Recorded - Smoking Status Unknown Medical History Includes: Medical History in patient's chart No Medical History Recorded Family History Includes: Family History in patient's chart No Family History Recorded Review of Systems Review of Systems not supported for this document type No Review of Systems Recorded Mental Status No Mental Status Recorded Functional Status No Functional Status Recorded Physical Exam Physical Exam not supported for this document type No Physical Exam Recorded Insurance Includes: Active Insurance Policies No Insurance Coverage Recorded Guarantor Relationship Effective Dates Guarantor Ph one JOSSELYN ADRIAN Self Clinical Notes Includes: Signed Clinical Notes starting from 05/14/2022 No Clinical Notes Recorded
--- OUTSIDE RECORDS SUMMARY | 2025-04-16 18:14 | XMS_ITS | Clinical Summary ---
Author Organization [facility] Address [address] [place] [address] Phone Care Team Providers Care Fashion Director Party Plan Sales Name Role Phone Celena Zavala DO Primary Care Provider [phone] Allergies No known active allergies Medications No known medications Social History Tobacco Use Types Packs/Day Years Used Date Smoking Tobacco: Never Assessed Tobacco Cessation:Counseling Given: Not Answered [facility] [place] [facility] Occupat ional Health - Occupational Stress Questionnaire Answer Date Recorded Do you feel stress - tense, restless, nervous, or anxious, or unable to sleep at night because your mind is troubled all the time - these days? To some extent 06/06/2024 Exercise Vital Sign Answer Date Recorde d On average, how many days pe r week do you engage in moderate to strenuous exercise (like a brisk walk)? 2 days 06/06/2024 On average, how many minutes do you engage in exercise at this level? 20 min 06/06/2024 Comments Unknown Sex and Gender Information Value Date Recorded Sex Assigned at Not on file Legal Sex Female 8:57 PM CDT Gender Identity Not on file Sexual Orientation Not on file Last Filed Vital Signs Vital Sign Reading Time Taken Comments Blood Pressure 124/66 10/18/2023 3:33 PM CDT Pulse 104 10/18/2023 3:33 PM CDT Temperature 37 C (98.6 F) 10/18/2023 3:33 PM CDT Respiratory Rate 14 10/18/2023 3:33 PM CDT Oxygen Saturation 100% 10/18/2023 3:33 PM CDT Inhaled Oxygen Concentration - - Weight 58.4 kg (128 lb 11.2 oz) 10/18/2023 3:33 PM CDT Height 157.5 cm (5' 2) 10/18/2023 3:33 PM CDT Body Mass Index 23.54 10/18/2023 3:33 PM CDT Plan of Treatment Health Maintenance Due Date Last Done Comments Hepatitis C Virus (HCV) Screening 1982 Varicella Immunization (1 of 2 - 13+ 2-dose series) 1995 Hepatitis B Immunization (1 of 3 - 19+ 3-dose series) 2001 Influenza Immunization (#1) 12/24/202401/23, 03/18/2018, 01/12/2017 SARS-COV-2 Immunization ( season) 2024 01/28/2021 Mammogram 01/21/2026 01/21/2025, 12/25, 12/15/2022, Additional history exists Pap Smear 05/22/2027 05/22/2024 Cervical Cancer Screening (CCS) 05/22/2029 HPV/Cotest 05/22/2029 05/22/2024 Respiratory Syncytial Virus (RSV) Immunization (Adult) (1 - 1-dose 75+ series) 2057 DTaP/Tdap/Td Immunization Discontinued 2020, 07/27/2018, 11/01/2016 TdaP Immunization Completed 02/10/2021, , 11/01/2016 Discussion re Starting/Frequency of Mammograms Completed 01/21/2025, 01/19/2024, 12/15/2022, Additional history exists Human Papillomavirus (HPV) Immunization (No Doses Required) Completed Meningococcal Immunization (ACWY) Aged Out No longer eligible based on patient's age to complete this topic Pneumococcal Immunization Combined Aged Out No longer eligible based on patient's age to complete this topic Rotavirus Immunization Aged Out No lo nger eligible based on patient's age to complete this topic Procedures Procedure Name Priority Date/Time Associated Diagnosis Comments MAMMOGRAM BILATERAL GENERIC 01/21/2025 12:00 AM CDT HUMAN PAPILLOMA VIRUS (HPV) 05/22/2024 12:00 AM TILE DESIGNER PATHOLOGY CYTOLOGY SAMPLE SHOE INSPECTOR AND REWORKER 05/22/2024 12:00 AM TILE DESIGNER from Last 3 Months or Most Recently Relevant to Health Maintenance Results * MAMMOGRAM BILATERAL GENERIC (01/21/2025 12:00 AM CDT) 01/21/2025 us Provider Scan IMG MAMMO ORDERABLES Final Resul t SCAN * PATHOLOGY CYTOLOGY SAMPLE SHOE INSPECTOR AND REWORKER (05/22/2024 12:00 AM TILE DESIGNER) 05/22/2024 us Provider Scan PATHOLOGY/CYTOLOGY ORDERABLES Fi nal Result SCAN * HUMAN PAPILLOMA VIRUS (HPV) (05/22/2024 12:00 AM TILE DESIGNER) 05/22/2024 us Provider Scan LAB SEND OUTS Final Result Performing Organization Address City/[facility]/ZIP Co de Phone Number SCAN from Last 3 Months or Most Recently Relevant to Health Maintenance Insurance [place] [address] Care Teams Fashion Director Party Plan Sales Relationship Specialty Start Date End Date Celena Zavala DO [address] [facility] [address] [place] [address] PCP - General Family Medicine 10/18/23
[2025-04-16 18:16] VITALS: BP 145/80; PULSE 104; RESP 20; TEMP 36.7; O2SAT 100
[2025-04-16] MEDS: TETANUS,DIPHTHERIA,AC PERTUSSIS ADULT (0.5 ML) BOOSTRIX IM (18:34)
--- NOTE | 2025-04-16 18:36 | ED_ITS ---
HPI - Animal Bite General Chief Complaint: Animal Bite Stated Complaint: cat bite Time Seen by Provider: 04/16/25 18:15 Source: patient and RN notes reviewed Mode of arrival: ambulatory Limitations: no limitations History of Present Illness HPI narrative: 44-year-old female patient presents [facility] complaining of cat bite to her right hand approximately 5 hours ago. Said the neighbor's cat bit her on the ri ght hand. Since then she reports redness and swelling around the right knuckle of the index finger. Patient is unsure of her tetanus status. Patient says the cats rabies are up-to-date. Patient has any fevers, body aches, chills, green, yellow drainage, hand dysfunction, numbness, tingling, as symptoms. Patient said she did wash the wound prior to arrival. Related Data Allergies Allergy/AdvReac Type Severity Reaction Status Date / Time No Known Allergies Allergy Verified 04/16/25 18:18 Review of Systems Review of Systems: CONSTITUTIONAL: Denies fever, chills, or sweats. EYES: Denies visual changes, redness, or discharge. ENT: Denies rhinorrhea, congestion, sore throat, or otalgia. CARDIOVASCULAR: Denies chest pain, palpitations, or edema. RESPIRATORY: Denies cough or dyspnea. GASTROINTESTINAL: Denies abdominal pain, nausea, vomiting, or diarrhea. GENITOURINARY: Denies dysuria or hematuria. SKIN: Denies rash or itching. Positive for 1 MUSCULOSKELETAL: Denies back pain, joint pain, or myalgia. NEUROLOGIC: Denies headache, numbness, or weakness. PSYCHIATRIC: Denies anxiety or depression. All other systems reviewed are negative, except as documented in HPI. PMFSH Comments At the time of my signature, I reviewed and agree with the nursing past medical, surgical, social, and family history. There is no relevant family history pertinent to the patient complaint. Exam Narrative: GENERAL: This is a well-nourished, well-developed adult, in no apparent distress. They are non ill-appearing, nontoxic appearing. HEAD: normocephalic, atraumatic. EYES: Sclera clear/white. Conjunctiva normal. Vision is grossly intact. Extraocular movements intact EARS: External ears normal, Hearing grossly intact. NOSE: External nose normal THROAT: Mucous membranes moist, NECK: Neck supple, CARDIOVASCULAR: Regular rate and rhythm RESPIRATORY: Respiratory rate normal, respiratory effort nonlabored, no respiratory distress SKIN: Right hand: There is small puncture wound to the dorsal surface of hand near the 2nd MCP joint. There is surrounding erythema and swelling to the 2nd MCP joint. Normal range of motion to the 2nd digit. Sensation intact. Capillary refill less than 2 seconds. Radial, ulnar, median nerve distribution intact. NEURO: awake, alert, and oriented to person, place and time. There were no obvious focal neurologic abnormalities. EXTREMITIES: No joint tenderness, effusion, or edema noted. BACK: Nontender without deformity. Course Course Level of Care: Express Care Visit Vital Signs Vital signs: Vital Signs Temperature 98.1 F 04/16/25 18:16 Pulse Rate 104 H 04/16/25 18:16 Respiratory Rate 20 04/16/25 18:16 Blood Pressure 145/80 H 04/16/25 18:16 Pulse Oximetry 100 04/16/25 18:16 Oxygen Delivery Room Air 04/16/25 18:16 Temperature 98.1 F 04/16/25 18:16 Pulse Rate 104 H 04/16/25 18:16 Respiratory Rate 20 04/16/25 18:16 Blood Pressure 145/80 H 04/16/25 18:16 Pulse Oximetry 100 04/16/25 18:16 Oxygen Delivery Room Air 04/16/25 18:16 MDM MDM Narrative Medical decision making narrative: Appears patient has an infected cat bite to her right hand. Start her on Augme ntin. Patient's tetanus is updated today. Patient's wound was cleansed by nursing staff, antibiotic ointment and Band-Aid applied the patient's wound. Neurovascular status intact distal to cat bite. No tenderness or passive tenderness to palpation to the tendon sheath the 2nd index finger. Discussed physical exam findings. Advised supportive measures and signs/symptoms to go to the ER. Pt is appropriate for outpt treatment and f/u. Differential Diagnosis Differential Diagnosis: Cellulitis, cat bite, puncture wound, tenosynovitis Critical Care Time Critical Care Time Critical Care Time: No Discharge Plan Discharge Clinical Impression: Infected cat bite of hand Qualifiers: Encounter type: initial encounter Laterality: right Qualified Code(s): S61.451A - Open bite of right hand, initial encounter Patient Disposition: Home Condition: Stable Instructions: Antibiotic Form, Animal Bite (ED) Additional Instructions: Take the Augmentin as directed. Finish the antibiotic completely even if you start to feel better. Wash the wound daily with mild soap and water, do not soak or scrub the wound. Do not apply peroxide or alcohol to the wound. Please keep the wound dry and covered, he may apply Vaseline or antibiotic ointment to the wound twice a day. Avoid dirty water to the wound has healed completely. Follow-up with PCP in 3-5 days. Tetanus is updated today. If you developed worsening redness, swelling, pain, green/yellow drainage, fevers, body eczema chills, or any serious concerns please go to the ER immediately. Patient Language: Ukrainian Prescriptions: New amoxicillin-pot clavulanate 875-125 mg tablet 1 tablet PO Q12H 7 Days Qty: 14 0RF Follow-up/Referrals: Lucas,Celena Gallo DO [Primary Care Provider, Unknown] Time of Disposition: 18:34
== END 2025-04-16 18:43 | disposition home or self-care (01) ==
PROVIDERS: PCP Student in an Organized Health Care Education/Training Program
DX: S61.431A Puncture wound without foreign body of right hand, initial encounter (principal); L08.9 Local infection of the skin and subcutaneous tissue, unspecified; W55.01XA Bitten by cat, initial encounter; Z23 Encounter for immunization
CPT/HCPCS: 90471; 90715; 99213; G0463